=== PATIENT | female | born 1965 | race African-American/Black ===

== ENCOUNTER 2016-06-13 02:52 | Inpatient (IN) | payer OTHER ==
[~2016-06-13] VITALS: Ht 170.2 cm; Wt 74.6 kg
[2016-06-13] VITALS (16 sets, daily range): BP systolic 131–190; BP diastolic 65–128; PULSE 79–92; TEMP 36.6–37.7; O2SAT 93–99; Ht 170.2 cm; Wt 74.6 kg
[2016-06-13] MEDS ORDERED: SODIUM CHLORIDE 0.9% 1000ML 1,000 ML IV STA (02:59)
[2016-06-13 03:25] LABS: HEMATOCRIT 18.2 % (37-47); MEAN CELL VOLUME 81.3 fL (80-100); MEAN CORPUSCULAR HEMOGLOBIN 26.8 pg (25-34); MEAN PLATELET VOLUME 9.2 fL (7.4-10.4); PLATELET COUNT 188 K/uL (130-400); RED BLOOD COUNT 2.24 M/uL (4.2-5.4); WHITE BLOOD COUNT 8.31 K/uL (4.8-10.8)
[2016-06-13 03:45] LABS: BLOOD UREA NITROGEN 92 mg/dl (7-18); GLUCOSE 154 mg/dl (70-99)
[2016-06-13 03:46] LABS: ALKALINE PHOSPHATASE 80 U/L (45-117); ALT/SGPT 63 U/L (12-78); AST/SGOT 46 U/L (15-37); BUN/CREATININE RATIO 8.4 (10-20); CALCIUM 7.7 mg/dl (8.5-10.1); CARBON DIOXIDE 20 mmol/L (21-32); CHLORIDE 105 mmol/L (98-107); POTASSIUM 4.1 mmol/L (3.5-5.1); SODIUM 143 mmol/L (136-145)
[2016-06-13 04:04] LABS: BASO % 0.6 %; BASO ABS # 0.05 K/uL (0-0.2); COMPLETE YES; EOS % 2.2 %; IG% 0.1 %; LYMPH % 14.3 %; LYMPH ABS # 1.19 K/uL (1.2-3.4); NEUT % 78.8 %
[2016-06-13] MEDS ORDERED: FERR325T PO (04:29)
[2016-06-13] MEDS ORDERED: CALC0.2510 PO (04:29)
[2016-06-13] MEDS ORDERED: LABE1TAB28 PO (04:31)
[2016-06-13] MEDS ORDERED: B-CO1CAP17 PO (04:31)
[2016-06-13] MEDS ORDERED: NIFE90TA PO (04:31)
[2016-06-13] MEDS ORDERED: CETI10TA84 PO (04:32)
[2016-06-13] MEDS ORDERED: SODI650T8 PO (04:32)
[2016-06-13] MEDS ORDERED: BUME2TAB3 PO (04:32)
[2016-06-13] MEDS ORDERED: ATOR-24 PO (04:32)
[2016-06-13] MEDS ORDERED: ASPI-435 PO (04:34)
[2016-06-13] MEDS ORDERED: CALC667C4 PO (04:34)
[2016-06-13] MEDS ORDERED: EPP3/2 IM (04:34)
[2016-06-13] MEDS ORDERED: INSDGI SC (04:34)
[2016-06-13] MEDS ORDERED: DIPH25CA65 PO (04:37)
[2016-06-13] MEDS ORDERED: VNTHFA/IN INH (04:37)
[2016-06-13] MEDS ORDERED: GLUCOSE 40% GEL 15 GM TUBE PO PRN (04:45)
[2016-06-13] MEDS ORDERED: GLUCAGON FOR INJ 1 MG VIAL SQ PRN (04:45)
[2016-06-13] MEDS ORDERED: DEXTROSE 50% 50 ML SYR IV PRN (04:45)
[2016-06-13] MEDS ORDERED: GLUCOSE 10 TABS/TUBE PO PRN (04:45)
[2016-06-13] MEDS ORDERED: MAGNESIUM HYDROXIDE SUSP 30 ML UDC PO PRN (04:45)
--- NOTE | 2016-06-13 05:07 | History and Physical ---
History & Physical Date & Time of Service: Jun 13, 2016 at 04:52 Chief Complaint: Abdominal Pain Primary Care Physician: Osbaldo Craig MD History of Present Illness Source: patient, clinic records This is a 51 year old female with PMH of insulin dependent DM2, CKD stage V, anemia of chronic kidney disease, HTN presents after being told to come to the ER with lab results of elevated creatinine; these lab results were found on ; multiple attempts to contact patient; patient states that she finally listened to her voicemail today telling her to come to the ER. She states that last night she developed some worsening shortness of breath - was going to wait until today until she could see her PCP, but breathing worsened so she came to the ER - upon presentation, she was found to be very anemic with a Hgb of 6.0 - creat was up to 11.0. She does not have an AV fistula or tunneled catheter in place. Denies chest pain. Takes her medication as prescribed. As per patient, she is still producing urine daily. Past Medical/Surgical History Medical Problems: (1) ESRD (end stage renal disease) Status: Chronic (2) IDDM (insulin dependent diabetes mellitus) Status: Chronic Family History No pertinent family history Social History Smoking Status: Former Smoker Multi-Drug Resistant Organisms History of MDRO: No Allergies Uncoded Allergies: PCN, AMPICILLIN (Allergy, Unknown, 07/22/02) Home Medications Scheduled Aspirin (Aspirin 81), 81 MG PO DAILY Atorvastatin (Lipitor), 40 MG PO HS Bumetanide (Bumex), 2 MG PO BID Calcitriol (Rocaltrol Cap), 0.25 MCG PO Q2D Calcium Acetate (Phoslo 667 Mg), 1 CAP PO TIDM Cetirizine (Zyrtec), 10 MG PO DAILY Ferrous Sulfate (Ferrous Sulfate), 325 MG PO BID Insulin Glargine (Lantus), 4 UNITS SC Q12 Labetalol (Normodyne), 400 MG PO BID Nifedipine (Procardia Xl), 90 MG PO DAILY Sodium Bicarbonate (Sodium Bicarbonate), 650 MG PO BID Vitamin B Cmplx/Vitc/Folic Ac (Nephrocaps), 1 CAP PO DAILY Scheduled PRN Albuterol Hfa (Ventolin Hfa), 2 PUFFS INH Q4 PRN for WHEEZE/SOB/COUGH/CHEST TIGHT Diphenhydramine Hcl (Benadryl Allergy), 25 MG PO Q4-6 PRN for UNDECIDED Epinephrine (Epipen), 0.3 MG IM UD PRN for ALLERGIC REACTION Review of Systems Constitutional: + weakness, No chills, No fever Respiratory: + shortness of breath, No cough, No dyspnea at rest, No dyspnea on exertion, No hemoptysis, No sputum, No wheezing Cardiovascular: No chest pain, No edema, No palpitations Abdomen: + GI bleeding (dark stools), No constipation, No diarrhea, No nausea, No pain, No vomiting Musculoskeletal: No joint pain, No muscle pain Genitourinary - Female: No dysuria, No hematuria, No urinary frequency, No urinary incontinence, No urinary retention, No urinary urgency Psychiatric: No depression symptoms Endocrine: + fatigue Integumentary: No rash Allergic / Immunologic: No environmental allergies, No seasonal allergies Physical Exam Vital Signs Date Time Temp Pulse Resp B/P Pulse Ox O2 Delivery O2 Flow Rate FiO2 06/13/16 04:10 87 20 179/86 95 Room Air 06/13/16 03:10 87 06/13/16 03:00 36.4 87 20 170/97 88 Room Air General Appearance: no apparent distress Head: normocephalic, atraumatic Eyes: normal inspection ENT: hearing grossly normal Neck: supple Respiratory/Chest: lungs clear, normal breath sounds, no respiratory distress, no accessory muscle use Cardiovascular: regular rate, rhythm, no murmur Abdomen/GI: normal bowel sounds, non tender, soft Back: no CVA tenderness, no muscle spasm Extremities/Musculoskelatal: + pertinent finding (trace edema b/l LE) Neurologic/Psych: no motor/sensory deficits, alert, normal mood/affect Skin: normal color Lymphatic: no adenopathy Diagnostics Laboratory Results Results Past 24 Hours Test 06/13/16 03:00 06/13/16 04:40 Range/Units White Blood Count 8.31 4.8-10.8 K/uL Red Blood Count 2.24 4.2-5.4 M/uL Hemoglobin 6.0 12.0-16.0 g/dL Hematocrit 18.2 37-47 % Mean Corpuscular Volume 81.3 80-100 fL Mean Corpuscular Hemoglobin 26.8 25-34 pg Mean Corpuscular Hemoglobin Concent 33.0 32-36 g/dl Platelet Count 188 130-400 K/uL Mean Platelet Volume 9.2 7.4-10.4 fL Neutrophils (%) (Auto) 78.8 % Lymphocytes (%) (Auto) 14.3 % Monocytes (%) (Auto) 4.0 % Eosinophils (%) (Auto) 2.2 % Basophils (%) (Auto) 0.6 % Neutrophils # (Auto) 6.55 1.4-6.5 K/uL Lymphocytes # (Auto) 1.19 1.2-3.4 K/uL Monocytes # (Auto) 0.33 0.11-0.59 K/uL Eosinophils # (Auto) 0.18 0-0.5 K/uL Basophils # (Auto) 0.05 0-0.2 K/uL RDW Standard Deviation 42.8 36.4-46.3 fL RDW Coefficient of Variation 14.2 11.5-14.5 % Immature Granulocyte % (Auto) 0.1 % Immature Granulocyte # (Auto) 0.01 0.00-0.02 K/uL Red Blood Cell Morphology Unremarkable Sodium Level 143 136-145 mmol/L Potassium Level 4.1 3.5-5.1 mmol/L Chloride Level 105 98-107 mmol/L Carbon Dioxide Level 20 21-32 mmol/L Anion Gap 18.0 3-11 mmol/L Blood Urea Nitrogen 92 7-18 mg/dl Creatinine 11.00 0.60-1.20 mg/dl Est Creatinine Clear Calc Drug Dose 6.5 ml/min Estimated GFR () 4.1 Estimated GFR (Non- 3.6 BUN/Creatinine Ratio 8.4 10-20 Random Glucose 154 70-99 mg/dl Calcium Level 7.7 8.5-10.1 mg/dl Total Bilirubin 0.7 0.2-1 mg/dl Direct Bilirubin 0.1 0-0.2 mg/dl Aspartate Amino Transf (AST/SGOT) 46 15-37 U/L Alanine Aminotransferase (ALT/SGPT) 63 12-78 U/L Alkaline Phosphatase 80 45-117 U/L Troponin I 1.390 0-0.045 ng/ml Pro-B-Type Natriuretic Peptide > 11848 0-900 pg/ml Total Protein 7.3 6.4-8.2 gm/dl Albumin 3.3 3.4-5.0 gm/dl Lipase 135 73-393 U/L CXR normal Impression Assessment and Plan This is a 51 year old female with PMH of insulin dependent DM2, CKD stage V, anemia of chronic kidney disease, HTN presents after being told to come to the ER with lab results of elevated creatinine Anemia of Chronic Kidney Disease -->patient with Hgb of 6.0 -->clinically patient felt weak and short of breath -->will transfuse two units pRBCs with bumex dose in between -->consulted nephro for possible epo -->anemia w/up pending CKD stage V -->creat up to 11.0 -->no AV fistula or tunneled catheter in place -->will likely need HD soon; still producing urine -->nephrology consult and vascular surgery consult placed -->continue sodium bicarb, phoslo, nephrocaps, and calcitriol Insulin Dependent DM2 -->continue Lantus -->sliding scale insulin -->last Ha1c < 7.0% HTN -->elevated due to missed dose -->continue home medications DVT ppx -->SCDs FULL CODE VTE Prophylaxis VTE Risk Assessment Done? Y/N: Yes Risk Level: Moderate
[2016-06-13 05:20] LABS: FERRITIN 149.2 ng/ml (8.0-388.0); TOTAL IRON BINDING CAPACITY 225 mcg/dl (250-450)
--- NOTE | 2016-06-13 06:26 | EMERGENCY ROOM VISIT NOTE ---
History Report prepared by Cyrus: Can Deluna Under the Supervision of: Dr. Seferino Polk M.D. First contact with patient: 02:55 Chief Complaint: ABDOMINAL PAIN Stated Complaint: ABDOMINAL PAIN History of Present Illness The patient is a 51 year old female who presents to the Emergency Room with complaints of improving abdominal pain that started earlier tonight. The pain was 10/10 in severity at its worst. She also felt short of breath when she was laying flat. The patient started to experience non-productive cough, rhinorrhea , and other cold symptoms yesterday. The patient has a history of pneumonia, and her current symptoms feel similar. The patient was diagnosed with ESRD secondary to IDDM. She had blood drawn one week ago. She was called today by her Magnetic Resonance Imaging Coordinator and told that her creatinine levels were elevated. She is scheduled to see her PCP, Dr. Craig, at 1000 today. The patient has plans to start dialysis in the future. Source of History: patient Onset: tonight Position: abdomen Symptom Intensity: 10/10 Timing: other (improving) Associated Symptoms: + SOB, + cough Review of Systems See HPI for pertinent positives & negatives. A total of 10 systems reviewed and were otherwise negative. Past Medical & Surgical Medical Problems: (1) Anemia (2) ESRD (end stage renal disease) (3) IDDM (insulin dependent diabetes mellitus) Family History No pertinent family history Social History Housing Status: lives with family Current/Historical Medications Scheduled Aspirin (Aspirin 81), 81 MG PO DAILY Atorvastatin (Lipitor), 40 MG PO HS Bumetanide (Bumex), 2 MG PO BID Calcitriol (Rocaltrol Cap), 0.25 MCG PO Q2D Calcium Acetate (Phoslo 667 Mg), 1 CAP PO TIDM Cetirizine (Zyrtec), 10 MG PO DAILY Ferrous Sulfate (Ferrous Sulfate), 325 MG PO BID Insulin Glargine (Lantus), 4 UNITS SC Q12 Labetalol (Normodyne), 400 MG PO BID Nifedipine (Procardia Xl), 90 MG PO DAILY Sodium Bicarbonate (Sodium Bicarbonate), 650 MG PO BID Vitamin B Cmplx/Vitc/Folic Ac (Nephrocaps), 1 CAP PO DAILY Scheduled PRN Albuterol Hfa (Ventolin Hfa), 2 PUFFS INH Q4 PRN for WHEEZE/SOB/COUGH/CHEST TIGHT Diphenhydramine Hcl (Benadryl Allergy), 25 MG PO Q4-6 PRN for UNDECIDED Epinephrine (Epipen), 0.3 MG IM UD PRN for ALLERGIC REACTION Allergies Coded Allergies: Ampicillin (Verified Allergy, Unknown, Unknown, 06/13/16) Penicillins (Verified Allergy, Unknown, Unknown, 06/13/16) Physical Exam Vital Signs Date Time Temp Pulse Resp B/P Pulse Ox O2 Delivery O2 Flow Rate FiO2 06/13/16 04:10 87 20 179/86 95 Room Air 06/13/16 03:10 87 06/13/16 03:00 36.4 87 20 170/97 88 Room Air Physical Exam GENERAL: Patient is well appearing and in minimal distress. HEENT: No acute trauma, normocephalic atraumatic, mucous membranes moist, no nasal congestion, no scleral icterus. NECK: No stridor, no adenopathy, no meningismus, trachea is midline. LUNGS: No dyspnea. Crackles in all lung pagan. HEART: Regular rate and rhythm. No murmurs, rubs, gallops appreciated. ABDOMEN: Soft, nontender, bowel sounds positive, no masses appreciated, no peritonitis. BACK: No midline tenderness, no CVA tenderness EXTREMITIES: Normal motion all extremities, no cyanosis, no edema. NEUROLOGIC: Alert and oriented, no acute motor or sensory deficits, no focal weakness, cranial nerves grossly intact. SKIN: No rash, no jaundice, no diaphoresis. Medical Decision & Procedures ER Provider Diagnostic Interpretation: X ray results are stated below per my interpretation. CHEST ONE VIEW: Mild perihilar inflammation with some venous congestion. Enlarged heart. No effusion, no infiltrate. Laboratory Results 06/13/16 03:00 Red Blood Count 2.24, Mean Corpuscular Volume 81.3, Mean Corpuscular Hemoglobin 26.8, Mean Corpuscular Hemoglobin Concent 33.0, Mean Platelet Volume 9.2, Neutrophils (%) (Auto) 78.8, Lymphocytes (%) (Auto) 14.3, Monocytes (%) (Auto) 4.0, Eosinophils (%) (Auto) 2.2, Basophils (%) (Auto) 0.6, Neutrophils # (Auto) 6.55, Lymphocytes # (Auto) 1.19, Monocytes # (Auto) 0.33, Eosinophils # (Auto) 0.18, Basophils # (Auto) 0.05 06/13/16 03:00 Test 06/13/16 03:00 White Blood Count 8.31 K/uL (4.8-10.8) Red Blood Count 2.24 M/uL (4.2-5.4) Hemoglobin 6.0 g/dL (12.0-16.0) Hematocrit 18.2 % (37-47) Mean Corpuscular Volume 81.3 fL (80-100) Mean Corpuscular Hemoglobin 26.8 pg (25-34) Mean Corpuscular Hemoglobin Concent 33.0 g/dl (32-36) Platelet Count 188 K/uL (130-400) Mean Platelet Volume 9.2 fL (7.4-10.4) Neutrophils (%) (Auto) 78.8 % Lymphocytes (%) (Auto) 14.3 % Monocytes (%) (Auto) 4.0 % Eosinophils (%) (Auto) 2.2 % Basophils (%) (Auto) 0.6 % Neutrophils # (Auto) 6.55 K/uL (1.4-6.5) Lymphocytes # (Auto) 1.19 K/uL (1.2-3.4) Monocytes # (Auto) 0.33 K/uL (0.11-0.59) Eosinophils # (Auto) 0.18 K/uL (0-0.5) Basophils # (Auto) 0.05 K/uL (0-0.2) RDW Standard Deviation 42.8 fL (36.4-46.3) RDW Coefficient of Variation 14.2 % (11.5-14.5) Immature Granulocyte % (Auto) 0.1 % Immature Granulocyte # (Auto) 0.01 K/uL (0.00-0.02) Red Blood Cell Morphology Unremarkable Absolute Reticulocyte Count 0.04 10^6/uL (0.02-0.10) Percent Reticulocyte Count 1.7 % (0.5-2.0) Anion Gap 18.0 mmol/L (3-11) Est Creatinine Clear Calc Drug Dose 6.5 ml/min Estimated GFR () 4.1 Estimated GFR (Non- 3.6 BUN/Creatinine Ratio 8.4 (10-20) Calcium Level 7.7 mg/dl (8.5-10.1) Iron Level 25 mcg/dl (35-150) Total Iron Binding Capacity 225 mcg/dl (250-450) Ferritin 149.2 ng/ml (8.0-388.0) Total Bilirubin 0.7 mg/dl (0.2-1) Direct Bilirubin 0.1 mg/dl (0-0.2) Aspartate Amino Transf (AST/SGOT) 46 U/L (15-37) Alanine Aminotransferase (ALT/SGPT) 63 U/L (12-78) Alkaline Phosphatase 80 U/L (45-117) Troponin I 1.390 ng/ml (0-0.045) Pro-B-Type Natriuretic Peptide > 59584 pg/ml (0-900) Total Protein 7.3 gm/dl (6.4-8.2) Albumin 3.3 gm/dl (3.4-5.0) Lipase 135 U/L (73-393) Laboratory results as reviewed by me. Medications Administered Medications (Trade) Dose Ordered Sig/Ben Route Start Time Stop Time Status Last Admin Dose Admin Sodium Chloride (Nss 1000ml) 1,000 ml @ 75 mls/hr [id number] STAT IV 06/13/16 02:59 06/13/16 06:19 DC 06/13/16 03:22 75 MLS/HR ECG Indication: abdominal pain Rate (beats per minute): 84 Rhythm: normal sinus Findings: nonspecific-ST abn, ST depression (Lateral), other (LVH, prolonged QTC at 508) ED Course 0255: The patient was evaluated in room B12b. A complete history and physical exam was performed. 0259: NSS 1000 ml @ 75 mls/hr. 0330: Updated the patient. 0350: Dr. Antunez, [facility] Hospitalist, was paged. 0412: Discussed the case with Dr. Antunez, [facility] Hospitalist. The patient will be evaluated. Medical Decision Differential: Sepsis, Infectious (UTI/Pneumonia/Meningitis/etc), Metabolic/ Electrolyte Abnormality, Cardiac, Hepatic, Endocrine, Toxicologic, Neurologic, amongst other pathologies entertained. 51 yr old female arrives with complaint of feeling short of breath this evening with vague abdominal discomfort and admits that her PCP advised her to go to ED several days ago for admission due to renal failure. Exam with some evidence of fluid overload which CXR is consistent with. She is not having chest pain and EKG without ischemia, though trop bump, which is likely Cr related. Cr is 11 which is quite high and I am sure is acute but unknown what her baseline is. Electrolytes are OK. She is very anemic which she admits she was told that she would need Epo last week though I suspect that this is acutely lower than previous. She states she has no black/tarry/bloody stools, however nursing came to tell me that she had remembered she was having black stools, though at this point hospitalist already in evaluating patient. Stable in ED without issues. I discussed need for blood transfusion given significant anemia with positive trop and patient understands risks/benefits and agrees with transfusion. Consults Time Called: 349 Consulting Physician: Dave Telles Hospitalist Returned Call: [phone]: Discussed the case with Dave Telles. The patient will be evaluated. Impression Primary Impression: Anemia Additional Impressions: Acute renal failure (ARF), Acute heart failure, Elevated troponin Critical Care I have personally spent greater than 35 minutes of critical care time in the direct management of this patient. This was a life/limb threatening event. This includes time spent evaluating patient, direct bedside care, chart review, placing orders, interpretation of diagnostic studies, discussion with consultants, patient, and family members, as well as other required patient management activities. This 35 minutes is in excess of all separately billable procedures. Scribe Attestation The scribe's documentation has been prepared under my direction and personally reviewed by me in its entirety. I confirm that the note above accurately reflects all work, treatment, procedures, and medical decision making performed by me. Departure Information Dispostion Being Evaluated By Hospitalist Rajat Johnson M.D. (PCP) Patient Instructions A Signature Page
[2016-06-13] MEDS ORDERED: BUMETANIDE 1 MG TAB PO ONE (06:30)
[2016-06-13 07:01] LABS: ESTIMATED AVERAGE GLUCOSE 120 mg/dl; HA1C FLAG Normal (Normal)
--- NOTE | 2016-06-13 07:35 | DIAGNOSTIC IMAGING REPORT ---
CHEST ONE VIEW PORTABLE HISTORY: Short of breath. COMPARISON: None. FINDINGS: The heart is enlarged. There is perihilar hazy opacities with mild interstitial and vascular thickening. No pneumothorax. Suspect trace bilateral pleural effusions. IMPRESSION: Above findings likely represent mild pulmonary edema with mild cardiomegaly and trace bilateral pleural effusions. Electronically signed by: Alli Quintanilla M.D. 06/13/2016 7:33 AM
[2016-06-13] MEDS: LABETALOL HCL 200 MG TAB PO SCH ×2 (08:07→22:11)
[2016-06-13] MEDS: CALCIUM ACETATE 667MG GELCAP PO SCH ×3 (08:07→18:51)
[2016-06-13] MEDS: NEPHROCAPS PO SCH (08:08)
[2016-06-13] MEDS: FERROUS SULFATE 325 MG TAB PO SCH ×2 (08:08→22:12)
[2016-06-13] MEDS: CALCITRIOL 0.25 MCG CAP PO SCH (08:08)
[2016-06-13] MEDS: NIFEdipine 30 MG CR TAB PO SCH (08:09)
[2016-06-13] MEDS: SODIUM BICARBONATE 650 MG TAB PO SCH ×2 (08:09→22:13)
[2016-06-13] MEDS: INSULIN ASPART 100 UNITS/ML 3 ML PEN SC SCH ×4 (08:12→21:00)
[2016-06-13] MEDS: INSULIN GLARGINE SOLOSTAR 100 UNITS/ML 3 ML PEN SC SCH ×2 (08:25→21:00)
[2016-06-13] MEDS ORDERED: ONDANSETRON INJ 2 MG/ML 2 ML VIAL ONE (10:03)
[2016-06-13] MEDS ORDERED: ONDANSETRON INJ 2 MG/ML 2 ML VIAL IV STA (12:54)
--- NOTE | 2016-06-13 14:37 | Progress Note ---
Medicine Progress Note Date & Time of Visit: Jun 13, 2016 at 14:16. Subjective Pt was seen and examined Lying in bed with no distress Pt said that she is very hungry she said that for the last few weeks she has been having dark stools She said that she just had a bowel movement and the stool was dark denies any family hx of colon ca she said that she is schedule for a screening colonoscopy in the next few weeks with [facility] in [place] denies any chest pain, palpitation, dizziness Objective Last 8 Hrs Date Time Temp Pulse Resp B/P Pulse Ox O2 Delivery O2 Flow Rate FiO2 06/13/16 13:22 85 06/13/16 12:00 36.6 82 16 140/68 93 Nasal Cannula 5.0 06/13/16 12:00 93 Nasal Cannula 5.0 06/13/16 11:08 84 06/13/16 10:00 82 16 166/97 95 Nasal Cannula 4.0 06/13/16 09:35 37.0 83 16 179/96 96 4.0 06/13/16 09:24 96 Nasal Cannula 4.0 06/13/16 09:14 37.1 83 16 189/99 96 4.0 06/13/16 09:05 37.1 83 16 189/88 96 4.0 06/13/16 08:35 37.1 87 16 179/121 95 4.0 06/13/16 08:20 37.2 81 16 184/96 96 4.0 06/13/16 08:00 36.7 82 16 173/128 97 4.0 06/13/16 07:12 36.7 88 16 190/90 98 06/13/16 06:59 87 Physical Exam: General- very pleasant, no acute distress Head- atraumatic Eyes- PERRL, EOMI ENT- oropharynx clear Neck- supple, no JVD Lungs- clear to auscultation and percussion, no wheezing Heart- regular rhythm; no murmur Abdomen- normal bowel sounds, soft, mild tender with deep palpation across the lower abdominal Extremities- no pretibial edema, no calf tenderness Neuro- alert, oriented x 3; PERRL, EOMI Skin- warm & dry Laboratory Results: Last 24 Hours Test 06/13/16 03:00 06/13/16 03:02 06/13/16 05:14 06/13/16 07:55 White Blood Count 8.31 K/uL Red Blood Count 2.24 M/uL Hemoglobin 6.0 g/dL Hematocrit 18.2 % Mean Corpuscular Volume 81.3 fL Mean Corpuscular Hemoglobin 26.8 pg Mean Corpuscular Hemoglobin Concent 33.0 g/dl Platelet Count 188 K/uL Mean Platelet Volume 9.2 fL Neutrophils (%) (Auto) 78.8 % Lymphocytes (%) (Auto) 14.3 % Monocytes (%) (Auto) 4.0 % Eosinophils (%) (Auto) 2.2 % Basophils (%) (Auto) 0.6 % Neutrophils # (Auto) 6.55 K/uL Lymphocytes # (Auto) 1.19 K/uL Monocytes # (Auto) 0.33 K/uL Eosinophils # (Auto) 0.18 K/uL Basophils # (Auto) 0.05 K/uL RDW Standard Deviation 42.8 fL RDW Coefficient of Variation 14.2 % Immature Granulocyte % (Auto) 0.1 % Immature Granulocyte # (Auto) 0.01 K/uL Red Blood Cell Morphology Unremarkable Absolute Reticulocyte Count 0.04 10^6/uL Percent Reticulocyte Count 1.7 % Sodium Level 143 mmol/L Potassium Level 4.1 mmol/L Chloride Level 105 mmol/L Carbon Dioxide Level 20 mmol/L Anion Gap 18.0 mmol/L Blood Urea Nitrogen 92 mg/dl Creatinine 11.00 mg/dl Est Creatinine Clear Calc Drug Dose 6.5 ml/min Estimated GFR () 4.1 Estimated GFR (Non- 3.6 BUN/Creatinine Ratio 8.4 Random Glucose 154 mg/dl Estimated Average Glucose 120 mg/dl Hemoglobin A1c 5.8 % Calcium Level 7.7 mg/dl Iron Level 25 mcg/dl Total Iron Binding Capacity 225 mcg/dl Ferritin 149.2 ng/ml Total Bilirubin 0.7 mg/dl Direct Bilirubin 0.1 mg/dl Aspartate Amino Transf (AST/SGOT) 46 U/L Alanine Aminotransferase (ALT/SGPT) 63 U/L Alkaline Phosphatase 80 U/L Troponin I 1.390 ng/ml Pro-B-Type Natriuretic Peptide > 53191 pg/ml Total Protein 7.3 gm/dl Albumin 3.3 gm/dl Lipase 135 U/L Hepatitis C Antibody Screen NEG Vitamin B12 Level 1119 pg/mL Folate > 24.00 ng/mL Bedside Glucose 152 mg/dl Test 06/13/16 12:00 06/13/16 13:16 Bedside Glucose 111 mg/dl Assessment & Plan Symptomatic Anemia Mostly related to Anemia of chronic disease Hgb of 6.0 on admission clinically patient felt weak and short of breath recieved 2 units pRBCs Will continue monitor h/h never had a colonoscopy Will consult GI Check FOBT ( Pt said that she has been having dark stool for week) Clear liquid diet PPI Iron studies done CKD stage V creatine up to 11.0 on admission with elevated anion gap no AV fistula or tunneled catheter in place Consult placed for vascular and nephrology She still produces urine continue sodium bicarb, phoslo, nephrocaps, and calcitriol Avoid nephrotoxic agent Insulin Dependent DM2 Control continue Lantus sliding scale insulin HbA1c 5.8 (06/13/16) HTN elevated due to missed dose continue home medications Continue monitor BP Elevated troponin Mostly related to CKD and low hgb denies any chest pain EKG did not show any significant ST changes will monitor CM DVT ppx -->SCDs FULL CODE Current Inpatient Medications: Current Inpatient Medications Medications (Trade) Dose Ordered Sig/Ben Route Start Time Stop Time Status Last Admin Dose Admin Magnesium Hydroxide (Milk Of Magnesia Susp) 30 ml Q12H PRN PO 06/13/16 04:45 07/13/16 04:44 Insulin Aspart (novoLOG ASPART) SLIDING SCALE If C... ACHS SC 06/13/16 07:00 07/13/16 06:59 06/13/16 08:12 1 UNITS Glucose (Glucose 40% Gel) 15-30 GRAMS 15 GRAMS... UD PRN PO 06/13/16 04:45 07/13/16 04:44 Glucose (Glucose Chew Tab) 4-8 Tablets 4 Tabl... UD PRN PO 06/13/16 04:45 07/13/16 04:44 Dextrose (Dextrose 50% 50ML Syringe) 25-50ML OF 50% DW IV FOR... UD PRN IV 06/13/16 04:45 07/13/16 04:44 Glucagon (Glucagon Inj) 1 mg UD PRN SQ 06/13/16 04:45 07/13/16 04:44 Atorvastatin Calcium (Lipitor Tab) 40 mg HS PO 06/13/16 21:00 07/13/16 20:59 Calcitriol (Rocaltrol Cap) 0.25 mcg Q48H PO 06/13/16 09:00 07/13/16 08:59 06/13/16 08:08 0.25 MCG Calcium Acetate (Phoslo Cap) 667 mg TIDM PO 06/13/16 08:00 07/13/16 07:59 06/13/16 08:07 667 MG Insulin Glargine (Lantus Solostar Pen) 4 unit Q12 SC 06/13/16 09:00 07/13/16 08:59 06/13/16 08:25 4 UNIT Labetalol HCl (Normodyne Tab) 400 mg BID PO 06/13/16 06:30 07/13/16 06:29 06/13/16 08:07 400 MG Sodium Bicarbonate (Sodium Bicarbonate Tab) 650 mg BID PO 06/13/16 09:00 07/13/16 08:59 06/13/16 08:09 650 MG Vitamin B Complex/ Vit C/Folic Acid (Nephrocaps) 1 cap DAILY PO 06/13/16 09:00 07/13/16 08:59 06/13/16 08:08 1 CAP Ferrous Sulfate (Feosol Tab) 325 mg BID PO 06/13/16 09:00 07/13/16 08:59 06/13/16 08:08 325 MG Nifedipine (Procardia Xl Tab) 90 mg DAILY PO 06/13/16 09:00 07/13/16 08:59 06/13/16 08:09 90 MG
--- NOTE | 2016-06-13 16:18 | Surgery Consultation ---
Consultation Date of Service Jun 13, 2016. (Yaa Ralph, PRATIBHA) Chief Complaint ESRD (Yaa Ralph PA-C) History of Present Illness The patient is a 51 year old female with hx of CKD stage 5, HTN, DMII, seen in consultation today for insertion of permcath for HD during admission for ARF and anemia. Pt admits fatigue. Denies MANCIA, fever, chills, chest pain, SOB, abd pain, N/V, rest pain, claudication, other complaints. (Yaa Ralph, PRATIBHA) Vitals Vital Signs Past 12 Hours Date Time Temp Pulse Resp B/P Pulse Ox O2 Delivery O2 Flow Rate FiO2 06/13/16 13:22 85 06/13/16 12:00 36.6 82 16 140/68 93 Nasal Cannula 5.0 06/13/16 12:00 93 Nasal Cannula 5.0 06/13/16 11:08 84 06/13/16 10:00 82 16 166/97 95 Nasal Cannula 4.0 06/13/16 09:35 37.0 83 16 179/96 96 4.0 06/13/16 09:24 96 Nasal Cannula 4.0 06/13/16 09:14 37.1 83 16 189/99 96 4.0 06/13/16 09:05 37.1 83 16 189/88 96 4.0 06/13/16 08:35 37.1 87 16 179/121 95 4.0 06/13/16 08:20 37.2 81 16 184/96 96 4.0 06/13/16 08:00 36.7 82 16 173/128 97 4.0 06/13/16 07:12 36.7 88 16 190/90 98 06/13/16 06:59 87 06/13/16 06:13 37.3 89 18 189/91 97 Room Air 06/13/16 06:12 37.3 92 18 189/91 99 4.0 06/13/16 06:12 37.3 89 18 189/91 98 4.0 06/13/16 05:44 93 20 162/68 94 Nasal Cannula 4.0 06/13/16 05:42 37.7 90 20 175/100 97 4.0 06/13/16 05:23 37.3 87 12 184/86 97 4.0 (Yaa Ralph PA-C) Allergies Coded Allergies: Ampicillin (Verified Allergy, Unknown, Unknown, 06/13/16) Penicillins (Verified Allergy, Unknown, Unknown, 06/13/16) Home Medications Scheduled Aspirin (Aspirin 81), 81 MG PO DAILY Atorvastatin (Lipitor), 40 MG PO HS Bumetanide (Bumex), 2 MG PO BID Calcitriol (Rocaltrol Cap), 0.25 MCG PO Q2D Calcium Acetate (Phoslo 667 Mg), 1 CAP PO TIDM Cetirizine (Zyrtec), 10 MG PO DAILY Ferrous Sulfate (Ferrous Sulfate), 325 MG PO BID Insulin Glargine (Lantus), 4 UNITS SC Q12 Labetalol (Normodyne), 400 MG PO BID Nifedipine (Procardia Xl), 90 MG PO DAILY Sodium Bicarbonate (Sodium Bicarbonate), 650 MG PO BID Vitamin B Cmplx/Vitc/Folic Ac (Nephrocaps), 1 CAP PO DAILY Scheduled PRN Albuterol Hfa (Ventolin Hfa), 2 PUFFS INH Q4 PRN for WHEEZE/SOB/COUGH/CHEST TIGHT Diphenhydramine Hcl (Benadryl Allergy), 25 MG PO Q4-6 PRN for UNDECIDED Epinephrine (Epipen), 0.3 MG IM UD PRN for ALLERGIC REACTION Problem List Medical Problems: (1) Anemia (2) ESRD (end stage renal disease) (3) IDDM (insulin dependent diabetes mellitus) (Yaa Ralph PA-C) Surgical / Medical History Hx Cardiac Surgery: No Hx Abdominal Surgery: Yes ( ) Hx Cancer Surgery: No Hx Thoracic Surgery: No Hx Orthopedic: No Hx Urinary Tract Surgery: No HX Other Surgery: Yes (ORAL ) Past Medical/Surgical History: Diabetes, Hypertension, Kidney Disease (Yaa Ralph PA-C) Family History No pertinent family history (Yaa Ralph PA-C) No pertinent family history (Bryant García M.D.) Social History Smoking Status: Former Smoker Hx Alcohol Use - Type & Amnt: Yes (OCC WINE ) Hx Substance Use -Type & Amnt: No (Yaa Ralph PA-C) Review of Systems Constitutional: + malaise, No chills, No fever Eyes: No visual changes ENMT: No sore throat Respiratory: + FAJARDO, No cough, No hemoptysis, No short of breath Cardiovascular: + edema, No chest pain, No intermittent claudication, No palpitations Gastrointestinal: No abdominal pain, No nausea, No vomiting Genitourinary - Female: No dysuria, No hematuria Neurologic: No dizziness, No lethargy, No numbness, No tingling (Yaa Ralph PA-C) Physical Exam Constitutional: General Apperance: well-nourished, well-developed Level of Distress: NAD, acutely ill Ambulation: ambulating normally Psychiatric: Mental Status: active & alert, normal mood, normal affect Orientation: oriented except where noted, to time, to place, to person Memory: recent memory normal, remote memory normal Head: normocephalic, atraumatic Eyes: EOM: EOMI ENMT: normal ENT inspection, hearing grossly normal Neck: supple, trachea midline Lungs: Respiratory effort: no dyspnea Auscultation: no rales/crackles, no rhonchi, decreased breath sounds Cardiovascular: Apical Impulse: not displaced Heart Auscultation: RRR, no rubs, no gallops Peripheral Pulses: Pulses: full and equal, in all extremities except if noted Bruits: none appreciated Carotid Pulse: normal on the left, normal on the right Brachial Pulses: normal on the left, normal on the right Radial Pulse: normal on the left, normal on the right Femoral Pulse: normal on the left, normal on the right Posterior Tibialis Pulse: decreased on the left, decreased on the right Dorsalis Pedis Pulse: decreased on the left, decreased on the right Abdomen: Bowel Sounds: normal Inspection & Palpation: soft, non-distended, no tenderness, guarding & rebound Musculoskeletal: normal strength (5/5 throughout), normal tone Extremities: Upper Right: no cyanosis, no varicosities, edema Upper Left: no cyanosis, no varicosities, no palpable cord, edema Lower Right: no cyanosis, no edema, no varicosities Lower Left: no cyanosis, no edema, no varicosities Neurologic: Cranial Nerves: grossly intact Sensation: grossly intact (Yaa Ralph, DARSHANAC) Assessment and Plan ASSESSMENT and PLAN: ESRD Pt on OR schedule for permcath insertion tomorrow. Discussed with pt, she states is not yet ready to proceed with catheter insertion. States she is planning on getting a second opinion as to whether she truly needs HD. Also would like to discuss possible transplant. Plans on discussing further with Nephrology tomorrow. Please call when/if pt agreeable to permcath insertion. (Yaa Ralph, PA-C)
--- NOTE | 2016-06-13 16:27 | NEPHROLOGY CONSULTATION ---
DATE OF CONSULTATION: 06/13/2016 ATTENDING OF RECORD: Dr. Belle. REASON FOR CONSULTATION: CKD stage V. HISTORY OF PRESENT ILLNESS: This is a 51-year-old female who recently moved to [place] and has seen my partner, Dr. Josie Castano once, came from out of state and was told her that her kidneys are failing. The patient is a diabetic and does have anemia of chronic kidney disease not yet on Procrit as well as underlying hypertension. The patient has been difficult to get a hold of in terms of arranging followup appointments and has canceled several followup appointments. Based on labs, kidney function was worsening quite dramatically and was encouraged to come to the Emergency Room for further evaluation and initiation of starting dialysis. The patient feels very tired and has had nausea and vomiting with her meds when she takes them on an empty stomach. Has intermittent decreased appetite. The patient states she has a son who lives in [place] who may be a potential donor. I have talked to Dr. García, the vascular surgeon who was making arrangements for a tunneled dialysis catheter for tomorrow. When speaking to her today, the patient does not want to start dialysis at this time and wants to pursue transplant. The patient also is requesting a second opinion from another nephrology group to see if she really needs to start dialysis or not. Based on Dr. Dykes's notes when she saw the patient May 09 and outside records that were sent to her on May 16, she was admitted in [place] from September 24 to the with acute on chronic heart failure. Her admission potassium was 6.3 and creatinine is 4.8. PTH was 237. Hepatitis panel and LINDY and ANCA titers were within normal limits. SPEP was negative. Did have elevated microalbumin of 4926 and a 24-hour urine was done for proteinuria which showed about 7.5 grams. Renal ultrasound showed 11.7 cm right kidney, 10.6 cm left kidney. Bilateral lower extremities showed some superficial venous thrombosis on bilateral small saphenous veins. No DVT seen. Echo done 09/28/2015 showed mild concentric LVH with an EF of 55%, no wall motion abnormalities and normal RV function and notes were made that during admission some behavioral concerns were seen and security called and there were concerns of whether the patient had appropriate housing upon discharge. On 10/17/2015, her creatinine was 5.7 with an estimated GFR of 9. On 12/22/2015, her creatinine was 6.7. So overall, the patient had CKD stage V since at least spring with no significant cardiac pathology and serologic workup for proteinuria was negative. Presumed diabetic nephropathy; however, there has been a challenging psychosocial situation based on notes in [place]. Dr. Tate who was covering Alejandrina Dykes on June 05 found a creatinine level 11.5 and stated that she needs dialysis and recommended that she will need access and need to start dialysis, that her blood pressure had a systolic of 190 indicating that this is not volume depleted. ROS: +fatigue, no fevers or chills, no headaches, no blurry vision, no dysphagia , no rash or itching, no chest pain, no sob, +significant weight loss, no diarrhea or constipation, +nausea and vomiting intermittently secondary to meds, all other review of systems otherwise negative. PAST MEDICAL HISTORY: Type 2 diabetes, hypertension, CKD stage V. The patient has been a diabetic since 1986 with retinopathy and neuropathy, had a TIA as well as longstanding hypertension. The patient had a DVT in the past x2 requiring Coumadin, has lost about 60 pounds in the past year, recently moved to the area from [place]. 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 The patient's main complaint has been fatigue. PAST SURGICAL HISTORY: Not known. SOCIAL HISTORY: Former smoker, occasional alcohol, no drugs. Lives alone. FAMILY HISTORY: Significant for 1 sibling on dialysis and 5 siblings with diabetes. CURRENT MEDICATIONS: Protonix 40 mg a day, Lipitor 40 mg at night, calcitriol 0.25 mcg every other day, Lantus 4 units subQ q. 12, sodium bicarbonate 650 mg p.o. b.i.d., Nephrocaps daily, iron 325 mg p.o. b.i.d., nifedipine 90 mg daily, PhosLo 1 p.o. t.i.d. with meals, sliding scale insulin, labetalol 400 mg p.o. b.i.d. PHYSICAL EXAMINATION VITAL SIGNS: Temperature 36.6, pulse 85, respiratory rate 16, blood pressure 140/68, satting 93% on 5 liters. GENERAL: Awake, alert, oriented x3. EYES: No scleral icterus. ENT: Moist mucous membranes. NECK: Supple. PULMONARY: Clear to auscultation. CARDIAC: Tachy. ABDOMEN: Bowel sounds positive, soft, nontender, nondistended. EXTREMITIES: No clubbing, cyanosis, has a mild edema. NEUROLOGIC: Nonfocal. DERMATOLOGIC: No rash or ulcers noted. LABORATORIES AND IMAGING DATA: On admission, hemoglobin level was 6, hematocrit 18.2; now hemoglobin level is 7.7 and 23 after being transfused 2 units. Vitamin B12 is 1119. Folic acid is greater than 24. Hemoglobin A1c is 5.8. Sodium level this morning was 143, potassium 4.1, chloride is 105, bicarb is 20, BUN is 92, creatinine is 11, glucose is 154, and calcium is 7.7. Ferritin 325, troponin 1.390. ProBNP greater than 35,000. Albumin is 3.3, lipase is 135. Hep C negative. Chest x-ray shows mild pulmonary edema with mild cardiomegaly and trace bilateral pleural effusions. IMPRESSION: 1. Chronic kidney disease stage V, presumed to be a combination of diabetes and hypertension with significant proteinuria based on previous records who has experienced uremic symptoms with fatigue, intermittent nausea and vomiting, and decreased appetite. I am recommending a tunneled dialysis catheter and initiation of dialysis. The patient would like to pursue transplant and be evaluated by transplant first and see if she can avoid dialysis altogether. The patient does have a potential living donor in [place] with her son. Unclear if her support system is strong enough to allow transplant; however, I have placed a transplant referral at this time to be evaluated by [facility] transplant as an outpatient. The patient is requesting a second opinion from the other nephrology group to see if they also recommend dialysis at this time. I did explain to her that we can continue dialysis and pursue aggressive transplant evaluation at the same time and that I am concerned that her uremic symptoms may worsen without dialysis and may lead to premature , although her potassium levels are stable at this time. Pt expressed understanding. 2. Anemia of chronic kidney disease stage V. Hemoglobin level is 6, did get 2 units of blood and is now up to 7.7. Hesitant to start Procrit at this time given the fact that she has had a 60-pound weight loss over the past year and I would like a colonoscopy first to rule out any type of concerning possible cancer, although her weight loss could be multifactorial and a consequence of her chronic kidney disease with poor appetite given the fact that she could have actually started dialysis about a year ago. GI has been consulted and I will discuss further with GI. 3. Metabolic acidosis, bicarbonate level is 20 and we will continue the sodium bicarbonate tablets. 4. Renal osteodystrophy. We will continue the patient's calcitriol and PhosLo and follow phosphorus levels intermittently. Overall, I do not feel the patient is volume depleted. I feel this is chronic kidney disease stage V and that initiation of dialysis is warranted. Given the fact that previous records from [place] indicate possible behavioral disturbances and she has a GFR of 4 and does not want to start dialysis at this time, I am respectful of her decision however I would like psychiatry to evaluate the patient to corroborate that she is of sound mind and understands the risks and side effects of waiting before initiating dialysis. Patient has uremic symptoms, has had a significant weight loss, has anemia and has signs of volume overload with a ProBNP of greater than 35,000 all necessitating initiation of dialysis and without dialysis the patient is risking her life. I have consulted the other nephrology group for a second opinion and I will discuss with Dr. García about her wishes to not do dialysis at this time and to not place the tunneled dialysis catheter. I will respect her wishes and stabilize the patient with continued blood transfusions as tolerated. For now, I would not start Procrit initiation until we rule out colon cancer given the significant weight loss over the past year. I appreciate the consultation. ERIKA
--- NOTE | 2016-06-13 16:37 | Gastrointestinal Consultation ---
Gastrointestinal Consultation Date of Consultation: Jun 13, 2016 Consulting Physician: Dr. Jason Reason for Consultation: melena, anemia History of Present Illness Patient is a 51 year old female with a history significant for insulin dependent DM2, CKD stage V, anemia of chronic kidney disease and HTN. GI was asked to evaluate the patient for anemia and black tarry stools. That patient states that she started taking PO iron in January. She reports intermittent episodes of dark tarry stools but they always resolved without intervention in a few days. Today, she reports about 1 week of dark tarry stools with worsening anemia. She denies any abdominal pain associated with these stools. She reports that she has a history of stomach ulcers, although she states she has never had an EGD. She denies SOB (was having SOB prior to admission) fever, chills, nausea , vomiting, bloody stools/emesis. HGB prior to admission was 6. HGB after 2 units of blood was 7. BUN 92 Creatine 11 Patient denies any previous EGD/Colonoscopy. She is scheduled for an outpatient colonoscopy in [place] this month Past Medical/Surgical History Medical Problems: (1) Acute heart failure Status: Acute (2) Acute renal failure (ARF) Status: Acute (3) Elevated troponin Status: Acute Family History No pertinent family history Social History Smoking Status: Former Smoker Housing Status: lives with family Allergies Coded Allergies: Ampicillin (Verified Allergy, Unknown, Unknown, 06/13/16) Penicillins (Verified Allergy, Unknown, Unknown, 06/13/16) Current Medications Home Meds and Scripts Medications Dose Route/Sig Max Daily Dose Days Date Category Dose Instructions Ventolin Hfa (Albuterol) 200 Puffs/03522 Mcg Aers 2 Puffs INH Q4 PRN 06/13/16 Reported AND PRIOR TO EXERCISE Benadryl Allergy (Diphenhydramine Hcl) 25 Mg Cap 25 Mg PO Q4-6 PRN 06/13/16 Reported Epipen (Epinephrine) 0.3 Mg/0.3 Ml Inj 0.3 Mg IM UD PRN 06/13/16 Reported Phoslo 667 Mg (Calcium Acetate) 667 Mg Cap 1 Cap PO TIDM 06/13/16 Reported Lantus (Insulin Glargine) 100 Unit/Ml Inj 4 Units SC Q12 06/13/16 Reported Aspirin 81 (Aspirin) 81 Mg Tab 81 Mg PO DAILY 06/13/16 Reported Zyrtec (Cetirizine HCl) 10 Mg Tab 10 Mg PO DAILY 06/13/16 Reported Lipitor (Atorvastatin Calcium) 40 Mg Tab 40 Mg PO HS 06/13/16 Reported Sodium Bicarbonate 650 Mg Tab 650 Mg PO BID 06/13/16 Reported Bumex (Bumetanide) 2 Mg Tab 2 Mg PO BID 06/13/16 Reported Nephrocaps (Vitamin B Complex/Vit C/Folic Acid) Cap 1 Cap PO DAILY 06/13/16 Reported Procardia Xl (Nifedipine) 90 Mg Tab 90 Mg PO DAILY 06/13/16 Reported Normodyne (Labetalol HCl) 200 Mg Tab 400 Mg PO BID 06/13/16 Reported Ferrous Sulfate 325 Mg Tab 325 Mg PO BID 06/13/16 Reported Rocaltrol Cap (Calcitriol) 0.25 Mcg Cap 0.25 Mcg PO Q2D 06/13/16 Reported Review of Systems Constitutional: + weight loss, No chills, No fever Eyes: No worsening of vision ENT: No hearing loss Respiratory: No cough, No shortness of breath Cardiac: + edema, No chest pain Abdomen: + GI bleeding (black tarry stools for 1 week, previously reports these in december which stopped without intervention), No constipation, No diarrhea , No nausea, No pain, No vomiting Physical Exam Date Time Temp Pulse Resp B/P Pulse Ox O2 Delivery O2 Flow Rate FiO2 06/13/16 13:22 85 06/13/16 12:00 36.6 82 16 140/68 93 Nasal Cannula 5.0 06/13/16 12:00 93 Nasal Cannula 5.0 06/13/16 11:08 84 06/13/16 10:00 82 16 166/97 95 Nasal Cannula 4.0 06/13/16 09:35 37.0 83 16 179/96 96 4.0 06/13/16 09:24 96 Nasal Cannula 4.0 06/13/16 09:14 37.1 83 16 189/99 96 4.0 06/13/16 09:05 37.1 83 16 189/88 96 4.0 06/13/16 08:35 37.1 87 16 179/121 95 4.0 06/13/16 08:20 37.2 81 16 184/96 96 4.0 06/13/16 08:00 36.7 82 16 173/128 97 4.0 06/13/16 07:12 36.7 88 16 190/90 98 06/13/16 06:59 87 06/13/16 06:13 37.3 89 18 189/91 97 Room Air 06/13/16 06:12 37.3 92 18 189/91 99 4.0 06/13/16 06:12 37.3 89 18 189/91 98 4.0 06/13/16 05:44 93 20 162/68 94 Nasal Cannula 4.0 06/13/16 05:42 37.7 90 20 175/100 97 4.0 06/13/16 05:23 37.3 87 12 184/86 97 4.0 06/13/16 04:10 87 20 179/86 95 Room Air 06/13/16 03:10 87 06/13/16 03:00 36.4 87 20 170/97 88 Room Air General Appearance: no apparent distress Eyes: PERRL ENT: hearing grossly normal Neck: supple, no adenopathy Respiratory/Chest: lungs clear, normal breath sounds, no respiratory distress, no accessory muscle use Cardiovascular: regular rate, rhythm, no edema, no gallop, no JVD, no murmur Abdomen: normal bowel sounds, non tender, soft, no organomegaly Neurologic/Psych: alert, normal mood/affect, oriented x 3 Skin: normal color, no jaundice, warm/dry, no rash Laboratory Results Last 24 Hours Test 06/13/16 03:00 06/13/16 03:02 06/13/16 05:14 06/13/16 07:55 White Blood Count 8.31 K/uL Red Blood Count 2.24 M/uL Hemoglobin 6.0 g/dL Hematocrit 18.2 % Mean Corpuscular Volume 81.3 fL Mean Corpuscular Hemoglobin 26.8 pg Mean Corpuscular Hemoglobin Concent 33.0 g/dl Platelet Count 188 K/uL Mean Platelet Volume 9.2 fL Neutrophils (%) (Auto) 78.8 % Lymphocytes (%) (Auto) 14.3 % Monocytes (%) (Auto) 4.0 % Eosinophils (%) (Auto) 2.2 % Basophils (%) (Auto) 0.6 % Neutrophils # (Auto) 6.55 K/uL Lymphocytes # (Auto) 1.19 K/uL Monocytes # (Auto) 0.33 K/uL Eosinophils # (Auto) 0.18 K/uL Basophils # (Auto) 0.05 K/uL RDW Standard Deviation 42.8 fL RDW Coefficient of Variation 14.2 % Immature Granulocyte % (Auto) 0.1 % Immature Granulocyte # (Auto) 0.01 K/uL Red Blood Cell Morphology Unremarkable Absolute Reticulocyte Count 0.04 10^6/uL Percent Reticulocyte Count 1.7 % Sodium Level 143 mmol/L Potassium Level 4.1 mmol/L Chloride Level 105 mmol/L Carbon Dioxide Level 20 mmol/L Anion Gap 18.0 mmol/L Blood Urea Nitrogen 92 mg/dl Creatinine 11.00 mg/dl Est Creatinine Clear Calc Drug Dose 6.5 ml/min Estimated GFR () 4.1 Estimated GFR (Non- 3.6 BUN/Creatinine Ratio 8.4 Random Glucose 154 mg/dl Estimated Average Glucose 120 mg/dl Hemoglobin A1c 5.8 % Calcium Level 7.7 mg/dl Iron Level 25 mcg/dl Total Iron Binding Capacity 225 mcg/dl Ferritin 149.2 ng/ml Total Bilirubin 0.7 mg/dl Direct Bilirubin 0.1 mg/dl Aspartate Amino Transf (AST/SGOT) 46 U/L Alanine Aminotransferase (ALT/SGPT) 63 U/L Alkaline Phosphatase 80 U/L Troponin I 1.390 ng/ml Pro-B-Type Natriuretic Peptide > 55039 pg/ml Total Protein 7.3 gm/dl Albumin 3.3 gm/dl Lipase 135 U/L Hepatitis C Antibody Screen NEG Vitamin B12 Level 1119 pg/mL Folate > 24.00 ng/mL Bedside Glucose 152 mg/dl Test 06/13/16 13:16 06/13/16 14:40 06/13/16 16:04 Bedside Glucose 111 mg/dl Hemoglobin 7.7 g/dL Hematocrit 23.0 % Impression Patient is a 51 year old female with melena, anemia with a Hgb of 7.7 after 2 units of blood. Differentials include upper GI bleed, ulcer, dark stools from iron, anemia from CKD Plan Attg addendum: I interviewed and examined pt, reviewed chart and labs. We are asked to see pt with CKD, likely with anemia secondary to kidney failure, for possiblity of GIB. pt with chronic normocytic anemia baseline hgb 7's now 6. She reports recent intermittent passage of dark stool, recent nausea. She reporrts gradual weight loss 60 lbs over the past year, which she says is intentional and related to dietary changes. On exam, she has borderline O 2 sat on supp O2, she has mild incr WOB and pauses to take a breath every 4-5 words. Her abd exam is benign. Labs show Bicarb 20, BUN 90. CXR shows mild volu overload. Her anemia is likely secondary to kidney failure, although I cannot rule out concomittant GI blood loss. Her nausea is likely related to uremia. I would defer endoscopic w/u until her volume status is better controlled. Will sign off - please refer to us when her resp status and metabolic abnl are improved.
[2016-06-13 17:20] LABS: PROTHROMBIN TIME (PATIENT) 10.9 SECONDS (9.0-12.0)
--- NOTE | 2016-06-13 17:26 | Nephrology Consultation ---
Nephrology Consultation Date & Providers Date of Consultation: Jun 13, 2016. Primary Care Provider: Osbaldo Craig MD Referring Provider: Reason for Consultation To provide a second opinion regarding the need to start hemodialysis History of Present Illness Ms. Salazar is a 51 year old female who is seen at the request of Dr. Romero in order to provide a second opinion regarding the need to start hemodialysis. Office records from the [facility] nephrology group were obtained , reviewed and scanned into the EMR. Ms. Salazar has AODM and HTN. She has undergone a thorough outpatient nephrology evaluation and was found to have advanced CKD with nephrotic range proteinuria. On several occasions she was informed that she was nearing ESRD and encouraged to have an AVF created and start dialysis education. Ms. Salazar had anxiety about starting dialysis. She postponed vascular access placement. Laboratory studies were obtained today which revealed creatinine 11.0, metabolic acidosis and progressive anemia with Hgb 6.0. Patient was admitted to [facility] for blood transfusion and initiation of HD. The patient has requested a second nephrology evaluation before starting dialysis. She wants reassurance that dialysis is indicated at this time and that she will still be able to pursue transplant evaluation. 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 ACHS SC 06/13/16 07:00 07/13/16 06:59 06/13/16 08:12 1 UNITS Glucose (Glucose 40% Gel) 15-30 GRAMS 15 GRAMS... UD PRN PO 06/13/16 04:45 07/13/16 04:44 Glucose (Glucose Chew Tab) 4-8 Tablets 4 Tabl... UD PRN PO 06/13/16 04:45 07/13/16 04:44 Dextrose (Dextrose 50% 50ML Syringe) 25-50ML OF 50% DW IV FOR... UD PRN IV 06/13/16 04:45 07/13/16 04:44 Glucagon (Glucagon Inj) 1 mg UD PRN SQ 06/13/16 04:45 07/13/16 04:44 Atorvastatin Calcium (Lipitor Tab) 40 mg HS PO 06/13/16 21:00 07/13/16 20:59 Calcitriol (Rocaltrol Cap) 0.25 mcg Q48H PO 06/13/16 09:00 07/13/16 08:59 06/13/16 08:08 0.25 MCG Calcium Acetate (Phoslo Cap) 667 mg TIDM PO 06/13/16 08:00 07/13/16 07:59 06/13/16 08:07 667 MG Insulin Glargine (Lantus Solostar Pen) 4 unit Q12 SC 06/13/16 09:00 07/13/16 08:59 06/13/16 08:25 4 UNIT Labetalol HCl (Normodyne Tab) 400 mg BID PO 06/13/16 06:30 07/13/16 06:29 06/13/16 08:07 400 MG Sodium Bicarbonate (Sodium Bicarbonate Tab) 650 mg BID PO 06/13/16 09:00 07/13/16 08:59 06/13/16 08:09 650 MG Vitamin B Complex/ Vit C/Folic Acid (Nephrocaps) 1 cap DAILY PO 06/13/16 09:00 07/13/16 08:59 06/13/16 08:08 1 CAP Ferrous Sulfate (Feosol Tab) 325 mg BID PO 06/13/16 09:00 07/13/16 08:59 06/13/16 08:08 325 MG Nifedipine 90 mg 90 mg DAILY PO 06/13/16 09:00 07/13/16 08:59 06/13/16 08:09 90 MG Clindamycin Phosphate (Cleocin 600mg/ 54ml D5W) 54 ml @ 100 mls/hr PREOP IV 06/14/16 06:00 06/14/16 18:00 Pantoprazole Sodium (Protonix Tab) 40 mg BID PO 06/14/16 09:00 07/14/16 08:59 UNV Family History No pertinent family history Negative for CKD/ESRD Social History Smoking Status: Former Smoker . 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 Remote h/o tobacco use Review of Systems Constitutional: No fever Respiratory: No shortness of breath Cardiovascular: No chest pain Abdomen: No pain A complete review of systems was performed. Pertinent positives are noted above. All other systems are negative. Physical Exam Date Time Temp Pulse Resp B/P Pulse Ox O2 Delivery O2 Flow Rate FiO2 06/13/16 16:40 93 Nasal Cannula 06/13/16 16:00 36.6 82 16 132/67 93 Nasal Cannula 4.0 06/13/16 16:00 93 Nasal Cannula 4.0 06/13/16 13:22 85 06/13/16 12:00 36.6 82 16 140/68 93 Nasal Cannula 5.0 06/13/16 12:00 93 Nasal Cannula 5.0 06/13/16 11:08 84 06/13/16 10:00 82 16 166/97 95 Nasal Cannula 4.0 06/13/16 09:35 37.0 83 16 179/96 96 4.0 06/13/16 09:24 96 Nasal Cannula 4.0 06/13/16 09:14 37.1 83 16 189/99 96 4.0 06/13/16 09:05 37.1 83 16 189/88 96 4.0 06/13/16 08:35 37.1 87 16 179/121 95 4.0 06/13/16 08:20 37.2 81 16 184/96 96 4.0 06/13/16 08:00 36.7 82 16 173/128 97 4.0 06/13/16 07:12 36.7 88 16 190/90 98 06/13/16 06:59 87 06/13/16 06:13 37.3 89 18 189/91 97 Room Air 06/13/16 06:12 37.3 92 18 189/91 99 4.0 06/13/16 06:12 37.3 89 18 189/91 98 4.0 06/13/16 05:44 93 20 162/68 94 Nasal Cannula 4.0 06/13/16 05:42 37.7 90 20 175/100 97 4.0 06/13/16 05:23 37.3 87 12 184/86 97 4.0 06/13/16 04:10 87 20 179/86 95 Room Air 06/13/16 03:10 87 06/13/16 03:00 36.4 87 20 170/97 88 Room Air General Appearance: no apparent distress Head: normocephalic, atraumatic Eyes: PERRL, EOMI Neck: no adenopathy Respiratory/Chest: lungs clear Cardiovascular: regular rate, rhythm Abdomen/GI: normal bowel sounds, non tender, soft Back: no CVA tenderness Extremities/Musculoskelatal: no calf tenderness, no pedal edema Neurologic/Psych: alert, oriented x 3 Lymphatic: no adenopathy Laboratory Results Last 24 Hours Test 06/13/16 03:00 06/13/16 03:02 06/13/16 05:14 06/13/16 07:55 White Blood Count 8.31 K/uL Red Blood Count 2.24 M/uL Hemoglobin 6.0 g/dL Hematocrit 18.2 % Mean Corpuscular Volume 81.3 fL Mean Corpuscular Hemoglobin 26.8 pg Mean Corpuscular Hemoglobin Concent 33.0 g/dl Platelet Count 188 K/uL Mean Platelet Volume 9.2 fL Neutrophils (%) (Auto) 78.8 % Lymphocytes (%) (Auto) 14.3 % Monocytes (%) (Auto) 4.0 % Eosinophils (%) (Auto) 2.2 % Basophils (%) (Auto) 0.6 % Neutrophils # (Auto) 6.55 K/uL Lymphocytes # (Auto) 1.19 K/uL Monocytes # (Auto) 0.33 K/uL Eosinophils # (Auto) 0.18 K/uL Basophils # (Auto) 0.05 K/uL RDW Standard Deviation 42.8 fL RDW Coefficient of Variation 14.2 % Immature Granulocyte % (Auto) 0.1 % Immature Granulocyte # (Auto) 0.01 K/uL Red Blood Cell Morphology Unremarkable Absolute Reticulocyte Count 0.04 10^6/uL Percent Reticulocyte Count 1.7 % Sodium Level 143 mmol/L Potassium Level 4.1 mmol/L Chloride Level 105 mmol/L Carbon Dioxide Level 20 mmol/L Anion Gap 18.0 mmol/L Blood Urea Nitrogen 92 mg/dl Creatinine 11.00 mg/dl Est Creatinine Clear Calc Drug Dose 6.5 ml/min Estimated GFR () 4.1 Estimated GFR (Non- 3.6 BUN/Creatinine Ratio 8.4 Random Glucose 154 mg/dl Estimated Average Glucose 120 mg/dl Hemoglobin A1c 5.8 % Calcium Level 7.7 mg/dl Iron Level 25 mcg/dl Total Iron Binding Capacity 225 mcg/dl Ferritin 149.2 ng/ml Total Bilirubin 0.7 mg/dl Direct Bilirubin 0.1 mg/dl Aspartate Amino Transf (AST/SGOT) 46 U/L Alanine Aminotransferase (ALT/SGPT) 63 U/L Alkaline Phosphatase 80 U/L Troponin I 1.390 ng/ml Pro-B-Type Natriuretic Peptide > 26236 pg/ml Total Protein 7.3 gm/dl Albumin 3.3 gm/dl Lipase 135 U/L Hepatitis C Antibody Screen NEG Vitamin B12 Level 1119 pg/mL Folate > 24.00 ng/mL Bedside Glucose 152 mg/dl Test 06/13/16 13:16 06/13/16 14:40 06/13/16 16:53 Bedside Glucose 111 mg/dl Hemoglobin 7.7 g/dL Hematocrit 23.0 % Prothrombin Time 10.9 SECONDS Prothromb Time International Ratio 1.0 Activated Partial Thromboplast Time 26.9 SECONDS Partial Thromboplastin Ratio 1.0 Impression # End stage renal disease due to diabetic nephropathy - initiation of HD is indicated at this time # Anemia # AODM # HTN Recommendations Outpatient nephrology records reviewed and discussed in detail with Ms. Salazar this evening. She understands that she is at ESRD and requires initiation of renal replacement therapy. She expressed anxiety about starting dialysis and was very concerned that it may preclude her ability to be listed for a kidney transplant in the future. I have reassured her that dialysis is necessary and her nephrology team will assist her with the transplant evaluation once her condition has stabilized. We have reviewed the indications/benefits & risks to vascular access placement and HD in detail. The patient voiced understanding and indicated that she is agreeable to starting dialysis tomorrow. 60 minute visit provided to the patient today. Will sign off. Please call if further assistance is needed.
[2016-06-13] MEDS: ATORVASTATIN 40 MG TAB PO SCH (22:13)
[2016-06-14] VITALS (20 sets, daily range): BP systolic 126–157; BP diastolic 54–107; PULSE 73–82; TEMP 36.1–36.9; O2SAT 2–100
[2016-06-14] MEDS ORDERED: CLINDAMYCIN 600 MG/54 ML D5W IV SCH (06:00)
[2016-06-14] MEDS ORDERED: CLINDAMYCIN IV 600 MG in DEXTROSE 5% ADD-VANTAGE 50ML 50 ML IV ONE (06:00)
[2016-06-14 06:12] LABS: HEMATOCRIT 21.6 % (37-47); MEAN CELL VOLUME 81.5 fL (80-100); MEAN CORPUSCULAR HEMOGLOBIN 27.2 pg (25-34); MEAN CORPUSCULAR HGB CONC 33.3 g/dl (32-36); MEAN PLATELET VOLUME 10.2 fL (7.4-10.4); PLATELET COUNT 181 K/uL (130-400); RED BLOOD COUNT 2.65 M/uL (4.2-5.4); WHITE BLOOD COUNT 6.03 K/uL (4.8-10.8)
--- NOTE | 2016-06-14 06:55 | Nephrology Progress Note ---
Nephrology Progress Note Date of Service: Jun 14, 2016. Subjective 51 yo female with presumed diabetes/htn as cause of her ESRD. serological workup was negative. no renal biopsy done. pt has been more tired over the past 2 months. did lose 60 pounds over past two years which she says was intentional from changing her diet. presented with hg of 6 and given two units of blood and energy levels much better. pt had second opinion from other nephrology group and is now agreeable to start dialysis. currently npo for possible tunneled line today. Objective Date Time Temp Pulse Resp B/P Pulse Ox O2 Delivery O2 Flow Rate FiO2 06/14/16 04:49 96 Nasal Cannula 4.0 06/14/16 04:00 Nasal Cannula 4.0 06/14/16 03:38 36.9 80 16 126/54 96 Nasal Cannula 2.0 06/13/16 23:59 Nasal Cannula 4.0 06/13/16 23:06 36.7 83 18 131/65 97 Nasal Cannula 2.0 06/13/16 20:00 Nasal Cannula 4.0 06/13/16 19:26 36.7 79 22 141/70 96 Nasal Cannula 2.0 06/13/16 16:40 93 Nasal Cannula 06/13/16 16:00 36.6 82 16 132/67 93 Nasal Cannula 4.0 06/13/16 16:00 93 Nasal Cannula 4.0 06/13/16 13:22 85 06/13/16 12:00 36.6 82 16 140/68 93 Nasal Cannula 5.0 06/13/16 12:00 93 Nasal Cannula 5.0 06/13/16 11:08 84 06/13/16 10:00 82 16 166/97 95 Nasal Cannula 4.0 06/13/16 09:35 37.0 83 16 179/96 96 4.0 06/13/16 09:24 96 Nasal Cannula 4.0 06/13/16 09:14 37.1 83 16 189/99 96 4.0 06/13/16 09:05 37.1 83 16 189/88 96 4.0 06/13/16 08:35 37.1 87 16 179/121 95 4.0 06/13/16 08:20 37.2 81 16 184/96 96 4.0 06/13/16 08:00 36.7 82 16 173/128 97 4.0 06/13/16 07:12 36.7 88 16 190/90 98 06/13/16 06:59 87 Physical Exam: General-aaox3 Eyes-no scleral icterus ENT-mmm Neck-supple Lungs-cta Heart-rrr Abdomen-bs+ s/nt/nd Extremities-mild edema Neuro-nonfocal Current Inpatient Medications Medications (Trade) Dose Ordered Sig/Ben Route Start Time Stop Time Status Last Admin Dose Admin Magnesium Hydroxide (Milk Of Magnesia Susp) 30 ml Q12H PRN PO 06/13/16 04:45 07/13/16 04:44 Insulin Aspart (novoLOG ASPART) SLIDING SCALE If C... ACHS SC 06/13/16 07:00 07/13/16 06:59 06/13/16 18:01 4 UNITS Glucose (Glucose 40% Gel) 15-30 GRAMS 15 GRAMS... UD PRN PO 06/13/16 04:45 07/13/16 04:44 Glucose (Glucose Chew Tab) 4-8 Tablets 4 Tabl... UD PRN PO 06/13/16 04:45 07/13/16 04:44 Dextrose (Dextrose 50% 50ML Syringe) 25-50ML OF 50% DW IV FOR... UD PRN IV 06/13/16 04:45 07/13/16 04:44 Glucagon (Glucagon Inj) 1 mg UD PRN SQ 06/13/16 04:45 07/13/16 04:44 Atorvastatin Calcium (Lipitor Tab) 40 mg HS PO 06/13/16 21:00 07/13/16 20:59 06/13/16 22:13 40 MG Calcitriol (Rocaltrol Cap) 0.25 mcg Q48H PO 06/13/16 09:00 07/13/16 08:59 06/13/16 08:08 0.25 MCG Calcium Acetate (Phoslo Cap) 667 mg TIDM PO 06/13/16 08:00 07/13/16 07:59 06/13/16 18:51 667 MG Insulin Glargine (Lantus Solostar Pen) 4 unit Q12 SC 06/13/16 09:00 07/13/16 08:59 06/13/16 08:25 4 UNIT Labetalol HCl (Normodyne Tab) 400 mg BID PO 06/13/16 06:30 07/13/16 06:29 06/13/16 22:11 400 MG Sodium Bicarbonate (Sodium Bicarbonate Tab) 650 mg BID PO 06/13/16 09:00 07/13/16 08:59 06/13/16 22:13 650 MG Vitamin B Complex/ Vit C/Folic Acid (Nephrocaps) 1 cap DAILY PO 06/13/16 09:00 07/13/16 08:59 06/13/16 08:08 1 CAP Ferrous Sulfate (Feosol Tab) 325 mg BID PO 06/13/16 09:00 07/13/16 08:59 06/13/16 22:12 325 MG Nifedipine 90 mg 90 mg DAILY PO 06/13/16 09:00 07/13/16 08:59 06/13/16 08:09 90 MG Clindamycin Phosphate (Cleocin 600mg/ 54ml D5W) 54 ml @ 100 mls/hr PREOP IV 06/14/16 06:00 06/14/16 18:00 Pantoprazole Sodium (Protonix Tab) 40 mg BID PO 06/14/16 09:00 07/14/16 08:59 Last 24 Hours Test 06/13/16 07:55 06/13/16 13:16 06/13/16 14:40 06/13/16 16:53 Bedside Glucose 152 mg/dl 111 mg/dl Hemoglobin 7.7 g/dL Hematocrit 23.0 % Prothrombin Time 10.9 SECONDS Prothromb Time International Ratio 1.0 Activated Partial Thromboplast Time 26.9 SECONDS Partial Thromboplastin Ratio 1.0 Test 06/13/16 17:22 06/13/16 22:03 06/14/16 05:21 Bedside Glucose 193 mg/dl 130 mg/dl White Blood Count 6.03 K/uL Red Blood Count 2.65 M/uL Hemoglobin 7.2 g/dL Hematocrit 21.6 % Mean Corpuscular Volume 81.5 fL Mean Corpuscular Hemoglobin 27.2 pg Mean Corpuscular Hemoglobin Concent 33.3 g/dl RDW Standard Deviation 42.0 fL RDW Coefficient of Variation 14.0 % Platelet Count 181 K/uL Mean Platelet Volume 10.2 fL Assessment & Plan ESRD-pt is agreeable to start dialysis at the [facility] unit. will speak to telephonic case manager to start process of accepting patient at that unit. will hopefully be able to get tunneled line today-initially on admission was not agreeable to start. currently npo. will do short dialysis treatment today and do daily dialysis to help remove toxins from body and help remove fluid which should also help with bp. Anemia of Renal Failure-pt presented with hg of 6 and likely with anemia of renal failure. did have 60 pound weight loss which she says is intentional from dietary choices and was over two years. would like to start procrit on her but would like to give her the form that explains the side effects prior to initiation of procrit to make sure she is agreeable with it. GI saw patient and would like her to be more stable prior to doing colonoscopy. for now transfuse prn. Psych-initially consulted psych to make sure she is of sound mind since she was refusing dialysis with a gfr of 4. however, she assures me that she likes to do research prior to any decision and was reassured after speaking with other front facer. will cancel psych consult at this time. Transplant-unclear if she has the social support system necessary for a transplant. but have made a referral to [facility] transplant to be evaluated. will stop the sodium bicarb tablets once she starts dialysis.
[2016-06-14] MEDS: INSULIN ASPART 100 UNITS/ML 3 ML PEN SC SCH ×4 (07:00→20:40)
[2016-06-14 07:09] LABS: BUN/CREATININE RATIO 8.7 (10-20); CALCIUM 7.7 mg/dl (8.5-10.1); POTASSIUM 4.1 mmol/L (3.5-5.1)
[2016-06-14] MEDS: CALCIUM ACETATE 667MG GELCAP PO SCH ×3 (07:30→15:37)
[2016-06-14] MEDS: INSULIN GLARGINE SOLOSTAR 100 UNITS/ML 3 ML PEN SC SCH ×2 (08:23→20:46)
--- NOTE | 2016-06-14 08:25 | Progress Note ---
Progress Note Pt for permcath insertion today. After further discussion with Dr Romero, pt is agreeable. Procedure, risks, benefits, and alternatives discussed with pt, she expresses understanding and agreement.
[2016-06-14] MEDS ORDERED: PANTOprazole SOD 40 MG TAB PO SCH (09:00)
[2016-06-14] MEDS: LABETALOL HCL 200 MG TAB PO SCH ×2 (09:22→20:43)
[2016-06-14] MEDS: NEPHROCAPS PO SCH (09:22)
[2016-06-14] MEDS: FERROUS SULFATE 325 MG TAB PO SCH ×2 (09:22→20:44)
[2016-06-14] MEDS: PANTOprazole SOD 40 MG TAB PO SCH ×2 (09:22→20:43)
[2016-06-14] MEDS: NIFEdipine 30 MG CR TAB PO SCH (09:23)
[2016-06-14] MEDS: SODIUM BICARBONATE 650 MG TAB PO SCH ×2 (09:23→20:42)
--- NOTE | 2016-06-14 10:12 | Progress Note ---
Progress Note Patient for insertion of permcath today. I have discussed the risks options and benefits of the procedure with the patient. The patient understands the risks options and benefits and agrees to the procedure. I have examined the patient, reviewed the History & Physical and in the interval since the performance of the History & Physical I have noted the following changes of clinical significance: No changes noted
--- NOTE | 2016-06-14 10:13 | Procedure Note ---
Pre-Mod Sedation Assessment General Date of Moderate Sedation: Jun 14, 2016. Vital Signs: Vital Signs Past 12 Hours Date Time Temp Pulse Resp B/P Pulse Ox O2 Delivery O2 Flow Rate FiO2 06/14/16 08:21 36.9 82 16 147/67 100 Nasal Cannula 3.0 06/14/16 04:49 96 Nasal Cannula 4.0 06/14/16 04:00 Nasal Cannula 4.0 06/14/16 03:38 36.9 80 16 126/54 96 Nasal Cannula 2.0 06/13/16 23:59 Nasal Cannula 4.0 06/13/16 23:06 36.7 83 18 131/65 97 Nasal Cannula 2.0 Pre-Sedation Airway Assessment Oral Cavity: Dentures Smoking Status: Former Smoker Mallampati Classification: Class I ASA Classification: Class II Notes The planned sedation has been discussed with the patient and consent obtained. I have identified the patient, determined the appropriateness of sedation and have assessed the patient immediately prior to the procedure. All medicine(s) and interventions are by my order.
[2016-06-14] MEDS ORDERED: HEPARIN SOD (PORCINE) 5000 UNIT/ML 1 ML VIAL ONE (10:38)
[2016-06-14] MEDS ORDERED: MIDAZOLAM HCL 1 MG/ML 2ML VIAL ONE (10:38)
[2016-06-14] MEDS ORDERED: FENTANYL CITRATE INJ 50 MCG/1 ML 2 ML VIAL ONE (10:38)
--- NOTE | 2016-06-14 11:07 | Progress Note ---
Medicine Progress Note Date & Time of Visit: Jun 14, 2016 at 10:52. Subjective Pt was seen and examined Lying in bed with no distress Pt said d that she feels fine she is going this morning to get insertion of the perm cath to start HD Pt denies any fever, palpitation, dizziness and SOB Objective Last 8 Hrs Date Time Temp Pulse Resp B/P Pulse Ox O2 Delivery O2 Flow Rate FiO2 06/14/16 08:21 36.9 82 16 147/67 100 Nasal Cannula 3.0 06/14/16 04:49 96 Nasal Cannula 4.0 06/14/16 04:00 Nasal Cannula 4.0 06/14/16 03:38 36.9 80 16 126/54 96 Nasal Cannula 2.0 Physical Exam: General- very pleasant, no acute distress Head- atraumatic Eyes- PERRL, EOMI ENT- oropharynx clear Neck- supple, no JVD Lungs- clear to auscultation and percussion, no wheezing Heart- regular rhythm; no murmur Abdomen- normal bowel sounds, soft, mild tender with deep palpation across the lower abdominal Extremities- no pretibial edema, no calf tenderness Neuro- alert, oriented x 3; PERRL, EOMI Skin- warm & dry Laboratory Results: Last 24 Hours Test 06/13/16 13:16 06/13/16 14:40 06/13/16 16:53 06/13/16 17:22 Bedside Glucose 111 mg/dl 193 mg/dl Hemoglobin 7.7 g/dL Hematocrit 23.0 % Prothrombin Time 10.9 SECONDS Prothromb Time International Ratio 1.0 Activated Partial Thromboplast Time 26.9 SECONDS Partial Thromboplastin Ratio 1.0 Test 06/13/16 22:03 06/14/16 05:21 06/14/16 06:49 Bedside Glucose 130 mg/dl 102 mg/dl White Blood Count 6.03 K/uL Red Blood Count 2.65 M/uL Hemoglobin 7.2 g/dL Hematocrit 21.6 % Mean Corpuscular Volume 81.5 fL Mean Corpuscular Hemoglobin 27.2 pg Mean Corpuscular Hemoglobin Concent 33.3 g/dl RDW Standard Deviation 42.0 fL RDW Coefficient of Variation 14.0 % Platelet Count 181 K/uL Mean Platelet Volume 10.2 fL Sodium Level 140 mmol/L Potassium Level 4.1 mmol/L Chloride Level 106 mmol/L Carbon Dioxide Level 22 mmol/L Anion Gap 12.0 mmol/L Blood Urea Nitrogen 96 mg/dl Creatinine 11.00 mg/dl Est Creatinine Clear Calc Drug Dose 6.5 ml/min Estimated GFR () 4.1 Estimated GFR (Non- 3.6 BUN/Creatinine Ratio 8.7 Random Glucose 103 mg/dl Calcium Level 7.7 mg/dl Assessment & Plan Symptomatic Anemia Mostly related to Anemia of chronic disease Hgb of 6.0 on admission clinically patient felt weak and short of breath Recieved 2 units pRBCs yesterday Hgb today 7.2 Will transfuse 2 units prbc today continue monitor h/h and transfuse if h/h below 8 GI was consult and deferred and scope at this time until her renal status stable She will need outpatient GI workup NPO this morning for the procedure PPI CKD stage V creatine up to 11.0 on admission with elevated anion gap no AV fistula or tunneled catheter in place Vascular consulted and Pt agreed to get the perm cath She is schedule to go to [place] today She had a second opinion from [place] [facility] that recommended to her that she needs to start HD Pt agreed to start HD during this admission continue sodium bicarb, phoslo, nephrocaps, and calcitriol Avoid nephrotoxic agent Insulin Dependent DM2 Control continue Lantus sliding scale insulin HbA1c 5.8 (06/13/16) HTN elevated due to missed dose continue home medications Continue monitor BP Elevated troponin Mostly related to CKD and low hgb denies any chest pain EKG did not show any significant ST changes stable DVT ppx -->SCDs FULL CODE Current Inpatient Medications: Current Inpatient Medications Medications (Trade) Dose Ordered Sig/Ben Route Start Time Stop Time Status Last Admin Dose Admin Magnesium Hydroxide (Milk Of Magnesia Susp) 30 ml Q12H PRN PO 06/13/16 04:45 07/13/16 04:44 Insulin Aspart (novoLOG ASPART) SLIDING SCALE If C... ACHS SC 06/13/16 07:00 07/13/16 06:59 06/13/16 18:01 4 UNITS Glucose (Glucose 40% Gel) 15-30 GRAMS 15 GRAMS... UD PRN PO 06/13/16 04:45 07/13/16 04:44 Glucose (Glucose Chew Tab) 4-8 Tablets 4 Tabl... UD PRN PO 06/13/16 04:45 07/13/16 04:44 Dextrose (Dextrose 50% 50ML Syringe) 25-50ML OF 50% DW IV FOR... UD PRN IV 06/13/16 04:45 07/13/16 04:44 Glucagon (Glucagon Inj) 1 mg UD PRN SQ 06/13/16 04:45 07/13/16 04:44 Atorvastatin Calcium (Lipitor Tab) 40 mg HS PO 06/13/16 21:00 07/13/16 20:59 06/13/16 22:13 40 MG Calcitriol (Rocaltrol Cap) 0.25 mcg Q48H PO 06/13/16 09:00 07/13/16 08:59 06/13/16 08:08 0.25 MCG Calcium Acetate (Phoslo Cap) 667 mg TIDM PO 06/13/16 08:00 07/13/16 07:59 06/13/16 18:51 667 MG Insulin Glargine (Lantus Solostar Pen) 4 unit Q12 SC 06/13/16 09:00 07/13/16 08:59 06/13/16 08:25 4 UNIT Labetalol HCl (Normodyne Tab) 400 mg BID PO 06/13/16 06:30 07/13/16 06:29 06/14/16 09:22 400 MG Sodium Bicarbonate (Sodium Bicarbonate Tab) 650 mg BID PO 06/13/16 09:00 07/13/16 08:59 06/14/16 09:23 650 MG Vitamin B Complex/ Vit C/Folic Acid (Nephrocaps) 1 cap DAILY PO 06/13/16 09:00 07/13/16 08:59 06/14/16 09:22 1 CAP Ferrous Sulfate (Feosol Tab) 325 mg BID PO 06/13/16 09:00 07/13/16 08:59 06/14/16 09:22 325 MG Nifedipine 90 mg 90 mg DAILY PO 06/13/16 09:00 07/13/16 08:59 06/14/16 09:23 90 MG Clindamycin Phosphate (Cleocin 600mg/ 54ml D5W) 54 ml @ 100 mls/hr PREOP IV 06/14/16 06:00 06/14/16 18:00 06/14/16 10:50 100 MLS/HR Pantoprazole Sodium (Protonix Tab) 40 mg BID PO 06/14/16 09:00 07/14/16 08:59 06/14/16 09:22 40 MG
[2016-06-14] MEDS ORDERED: FENTANYL CITRATE INJ 50 MCG/1 ML 2 ML VIAL IV ONE (11:15)
[2016-06-14] MEDS ORDERED: LIDOCAINE HCL 1% 20 ML VIAL INJ ONE (11:15)
[2016-06-14] MEDS ORDERED: MIDAZOLAM HCL 1 MG/ML 2ML VIAL IV ONE (11:15)
[2016-06-14] MEDS ORDERED: HEPARIN SOD (PORCINE) 5000 UNIT/ML 1 ML VIAL IV ONE (11:39)
--- NOTE | 2016-06-14 11:51 | [facility] Post Operative Brief Note ---
Immediate Operative Summary Operative Date Jun 14, 2016. Pre-Operative Diagnosis acute renal failure Post-Operative Diagnosis same Procedure(s) Performed Insertion Of Perm Catheter, Right Internal Jugular Approach, Ultrasound Localization Of Right Internal Jugular Vein, Fluoroscopy For Positioning, Moderate Concious Sedation [address] García Furnace Puncher Surgeon(s) none Estimated Blood Loss 20 ml Findings tip in distal SVC Specimens none Anesthesia Local with moderate conscious sedation Complication(s) None Disposition
--- NOTE | 2016-06-14 11:51 | Procedure Note ---
Post-Moderate Sedation Plan General Date of Moderate Sedation Jun 14, 2016. Vital Signs: Vital Signs Past 12 Hours Date Time Temp Pulse Resp B/P Pulse Ox O2 Delivery O2 Flow Rate FiO2 06/14/16 08:21 36.9 82 16 147/67 100 Nasal Cannula 3.0 06/14/16 04:49 96 Nasal Cannula 4.0 06/14/16 04:00 Nasal Cannula 4.0 06/14/16 03:38 36.9 80 16 126/54 96 Nasal Cannula 2.0 06/13/16 23:59 Nasal Cannula 4.0 Review - Discharge Plan Post Moderate Sedation Plan: On clinical assessment, the patient appears to have tolerated the conscious sedation without complications. Patient is recovering as anticipated. Patient will continue to be monitored by nursing and may be discharged when conscious sedation discharge criteria are met.
[2016-06-14] MEDS ORDERED: NURSING DECISION MEDICATION ORDER ONE (15:00)
[2016-06-14] MEDS: ACETAMINOPHEN 325 MG TAB PO PRN (15:37)
[2016-06-14] MEDS: ATORVASTATIN 40 MG TAB PO SCH (20:42)
[2016-06-15] VITALS (33 sets, daily range): BP systolic 143–193; BP diastolic 74–96; PULSE 70–83; TEMP 36.6–37; O2SAT 94–98
[2016-06-15] MEDS: ACETAMINOPHEN 325 MG TAB PO PRN ×3 (00:14→19:54)
[2016-06-15] MEDS: INSULIN ASPART 100 UNITS/ML 3 ML PEN SC SCH ×4 (10:11→21:00)
[2016-06-15] MEDS: CALCIUM ACETATE 667MG GELCAP PO SCH ×3 (10:13→16:39)
[2016-06-15] MEDS: NEPHROCAPS PO SCH (10:16)
[2016-06-15] MEDS: LABETALOL HCL 200 MG TAB PO SCH ×2 (10:16→19:56)
[2016-06-15] MEDS: CALCITRIOL 0.25 MCG CAP PO SCH (10:17)
[2016-06-15] MEDS: NIFEdipine 30 MG CR TAB PO SCH (10:17)
[2016-06-15] MEDS: SODIUM BICARBONATE 650 MG TAB PO SCH ×2 (10:17→19:55)
[2016-06-15] MEDS: PANTOprazole SOD 40 MG TAB PO SCH ×2 (10:18→19:54)
[2016-06-15] MEDS: INSULIN GLARGINE SOLOSTAR 100 UNITS/ML 3 ML PEN SC SCH ×2 (10:22→21:00)
[2016-06-15] MEDS: FERROUS SULFATE 325 MG TAB PO SCH ×2 (10:24→19:55)
[2016-06-15] MEDS: HydrALAZINE HCL 20 MG/ML VIAL IV. PRN (11:11)
[2016-06-15 11:37] LABS: HEMATOCRIT 26.5 % (37-47); MEAN CELL VOLUME 80.1 fL (80-100); MEAN CORPUSCULAR HEMOGLOBIN 27.2 pg (25-34); MEAN PLATELET VOLUME 9.2 fL (7.4-10.4); PLATELET COUNT 169 K/uL (130-400); RED BLOOD COUNT 3.31 M/uL (4.2-5.4); WHITE BLOOD COUNT 5.89 K/uL (4.8-10.8)
[2016-06-15 12:29] LABS: BUN/CREATININE RATIO 6.5 (10-20); CALCIUM 7.8 mg/dl (8.5-10.1); CREATININE 4.8 mg/dl (0.60-1.20); POTASSIUM 3.7 mmol/L (3.5-5.1)
[2016-06-15] MEDS ORDERED: BUMETANIDE 1 MG TAB PO ONE (12:45)
--- NOTE | 2016-06-15 12:47 | Nephrology Progress Note ---
Nephrology Progress Note Date of Service: Jun 15, 2016. Subjective tolerated HD well today; no n/v/MANCIA/sob; some pain over TDC site still; no bleeding; fatigue improved Objective Date Time Temp Pulse Resp B/P Pulse Ox O2 Delivery O2 Flow Rate FiO2 06/15/16 10:15 Nasal Cannula 2.0 06/15/16 10:15 37.0 83 18 193/86 95 Room Air 06/15/16 09:30 37.0 75 146/75 06/15/16 09:15 70 151/75 06/15/16 09:00 70 143/74 06/15/16 08:45 79 187/90 06/15/16 08:30 77 186/88 06/15/16 08:15 80 192/92 06/15/16 08:00 77 176/76 06/15/16 07:45 77 175/95 06/15/16 07:30 76 184/87 06/15/16 07:15 76 179/87 06/15/16 07:00 73 176/82 06/15/16 06:45 75 169/83 06/15/16 06:30 76 175/85 06/15/16 06:20 76 172/90 06/15/16 06:00 36.6 74 177/90 06/15/16 04:49 97 Nasal Cannula 2.0 06/15/16 04:00 37.0 72 18 174/84 98 Nasal Cannula 2.5 06/15/16 04:00 Nasal Cannula 2.0 06/15/16 00:03 37.0 78 19 176/79 97 Room Air 06/14/16 23:59 Nasal Cannula 2.0 06/14/16 20:00 Nasal Cannula 2.0 06/14/16 19:45 80 22 157/86 97 06/14/16 18:25 36.1 75 148/73 06/14/16 18:15 75 140/69 06/14/16 18:00 75 141/59 06/14/16 17:45 75 143/66 06/14/16 17:30 75 144/71 06/14/16 17:15 75 144/70 06/14/16 17:00 75 142/71 06/14/16 16:45 75 139/73 06/14/16 16:30 76 148/69 1/6/17 16:15 75 145/73 06/14/16 16:00 36.4 75 152/71 06/14/16 16:00 2 Nasal Cannula 06/14/16 15:51 36.6 76 16 140/71 95 Nasal Cannula 06/14/16 14:30 36.8 75 18 141/67 94 06/14/16 13:30 36.8 74 18 140/68 93 2.0 06/14/16 12:50 36.7 78 20 140/107 97 2.0 Physical Exam: General-A& 0 x 3 on 02nc Eyes-eomi ENT-mmm Neck-supple Lungs-ctab, TDC R chest Heart-rrr Abdomen-soft nt +bs Extremities-no c/c Neuro-hauser, fluent speech Current Inpatient Medications Medications (Trade) Dose Ordered Sig/Ben Route Start Time Stop Time Status Last Admin Dose Admin Magnesium Hydroxide (Milk Of Magnesia Susp) 30 ml Q12H PRN PO 06/13/16 04:45 07/13/16 04:44 Insulin Aspart (novoLOG ASPART) SLIDING SCALE If C... ACHS SC 06/13/16 07:00 07/13/16 06:59 06/13/16 18:01 4 UNITS Glucose (Glucose 40% Gel) 15-30 GRAMS 15 GRAMS... UD PRN PO 06/13/16 04:45 07/13/16 04:44 Glucose (Glucose Chew Tab) 4-8 Tablets 4 Tabl... UD PRN PO 06/13/16 04:45 07/13/16 04:44 Dextrose (Dextrose 50% 50ML Syringe) 25-50ML OF 50% DW IV FOR... UD PRN IV 06/13/16 04:45 07/13/16 04:44 Glucagon (Glucagon Inj) 1 mg UD PRN SQ 06/13/16 04:45 07/13/16 04:44 Atorvastatin Calcium (Lipitor Tab) 40 mg HS PO 06/13/16 21:00 07/13/16 20:59 06/14/16 20:42 40 MG Calcitriol (Rocaltrol Cap) 0.25 mcg Q48H PO 06/13/16 09:00 07/13/16 08:59 06/15/16 10:17 0.25 MCG Calcium Acetate (Phoslo Cap) 667 mg TIDM PO 06/13/16 08:00 07/13/16 07:59 06/15/16 10:13 667 MG Insulin Glargine (Lantus Solostar Pen) 4 unit Q12 SC 06/13/16 09:00 07/13/16 08:59 06/15/16 10:22 4 UNIT Labetalol HCl (Normodyne Tab) 400 mg BID PO 06/13/16 06:30 07/13/16 06:29 06/15/16 10:16 400 MG Sodium Bicarbonate (Sodium Bicarbonate Tab) 650 mg BID PO 06/13/16 09:00 07/13/16 08:59 06/15/16 10:17 650 MG Vitamin B Complex/ Vit C/Folic Acid (Nephrocaps) 1 cap DAILY PO 06/13/16 09:00 07/13/16 08:59 06/15/16 10:16 1 CAP Ferrous Sulfate (Feosol Tab) 325 mg BID PO 06/13/16 09:00 07/13/16 08:59 06/15/16 10:24 325 MG Nifedipine (Procardia Xl Tab) 90 mg DAILY PO 06/13/16 09:00 07/13/16 08:59 06/15/16 10:17 90 MG Pantoprazole Sodium (Protonix Tab) 40 mg BID PO 06/14/16 09:00 07/14/16 08:59 06/15/16 10:18 40 MG Acetaminophen (Tylenol Tab) 650 mg Q6H PRN PO 06/14/16 15:15 07/14/16 15:14 06/15/16 00:14 650 MG Hydralazine HCl (HydrALAZINE INJ) 10 mg Q6 PRN IV. 06/15/16 07:45 07/15/16 07:44 06/15/16 11:11 10 MG Last 24 Hours Test 06/14/16 16:30 06/14/16 16:33 06/14/16 20:25 06/15/16 03:26 Bedside Glucose 153 mg/dl 175 mg/dl 107 mg/dl Hepatitis B Surface Antigen NEG Test 06/15/16 10:01 06/15/16 11:08 06/15/16 11:30 Bedside Glucose 146 mg/dl 182 mg/dl White Blood Count 5.89 K/uL Red Blood Count 3.31 M/uL Hemoglobin 9.0 g/dL Hematocrit 26.5 % Mean Corpuscular Volume 80.1 fL Mean Corpuscular Hemoglobin 27.2 pg Mean Corpuscular Hemoglobin Concent 34.0 g/dl RDW Standard Deviation 40.2 fL RDW Coefficient of Variation 13.9 % Platelet Count 169 K/uL Mean Platelet Volume 9.2 fL Sodium Level 141 mmol/L Potassium Level 3.7 mmol/L Chloride Level 106 mmol/L Carbon Dioxide Level 24 mmol/L Anion Gap 11.0 mmol/L Creatinine 4.80 mg/dl Est Creatinine Clear Calc Drug Dose 15.0 ml/min Estimated GFR () 11.3 Estimated GFR (Non- 9.7 BUN/Creatinine Ratio 6.5 Random Glucose 192 mg/dl Calcium Level 7.8 mg/dl Assessment & Plan 51 yo female with presumed diabetes/htn as cause of her ESRD presented with hg of 6 and critical K/Creat ESRD -had 06/14, 06/15 > likely to need 06/16 d/t HTN and again possibly on 06/17 depending on status -now states she wishes to go to [facility]; defer to to arrange outpt dialysis at unit of pt preference -txplt referral placed last week anemia of esrd and chronic dz -transfuse prn -hold off on epo until risks/benefits can be discussed in detail; many clinical transitions going on currently and want to keep pt feeling up to date/ in control -daily hgb HTN remains uncontrolled labetalol upped; on nifedipine & prn hydralazine -will resume outpt bumex and consider hd am FABIOLA -binders Appreciate c/s; will follow w/ you
--- NOTE | 2016-06-15 13:45 | Progress Note ---
Medicine Progress Note Date & Time of Visit: Jun 15, 2016 at 13:34. Subjective Pt was seen and examined Lying in bed comfortable with no distress Pt had her first HD today Pt said that it went well she denies any chest pain, palpitation, dizziness and SOB Objective Last 8 Hrs Date Time Temp Pulse Resp B/P Pulse Ox O2 Delivery O2 Flow Rate FiO2 06/15/16 13:00 80 19 06/15/16 12:59 77 16 176/82 06/15/16 12:54 36.8 80 22 182/96 97 Nasal Cannula 2.0 06/15/16 12:30 77 16 06/15/16 12:28 77 28 173/81 06/15/16 12:00 Nasal Cannula 2.0 06/15/16 12:00 76 18 06/15/16 10:15 Nasal Cannula 2.0 06/15/16 10:15 37.0 83 18 193/86 95 Room Air 06/15/16 09:30 37.0 75 146/75 06/15/16 09:15 70 151/75 06/15/16 09:00 70 143/74 06/15/16 08:45 79 187/90 06/15/16 08:30 77 186/88 06/15/16 08:15 80 192/92 06/15/16 08:00 77 176/76 06/15/16 07:45 77 175/95 06/15/16 07:30 76 184/87 06/15/16 07:15 76 179/87 06/15/16 07:00 73 176/82 06/15/16 06:45 75 169/83 06/15/16 06:30 76 175/85 06/15/16 06:20 76 172/90 06/15/16 06:00 36.6 74 177/90 Physical Exam: General- very pleasant, no acute distress Head- atraumatic Eyes- PERRL, EOMI ENT- oropharynx clear Neck- supple, no JVD Lungs- clear to auscultation and percussion, no wheezing Heart- regular rhythm; no murmur Abdomen- normal bowel sounds, soft, mild tender with deep palpation across the lower abdominal Extremities- no pretibial edema, no calf tenderness Neuro- alert, oriented x 3; PERRL, EOMI Skin- warm & dry Laboratory Results: Last 24 Hours Test 06/14/16 16:30 16/17 16:33 06/14/16 20:25 06/15/16 03:26 Bedside Glucose 153 mg/dl 175 mg/dl 107 mg/dl Hepatitis B Surface Antigen NEG Test 06/15/16 10:01 06/15/16 11:08 06/15/16 11:30 Bedside Glucose 146 mg/dl 182 mg/dl White Blood Count 5.89 K/uL Red Blood Count 3.31 M/uL Hemoglobin 9.0 g/dL Hematocrit 26.5 % Mean Corpuscular Volume 80.1 fL Mean Corpuscular Hemoglobin 27.2 pg Mean Corpuscular Hemoglobin Concent 34.0 g/dl RDW Standard Deviation 40.2 fL RDW Coefficient of Variation 13.9 % Platelet Count 169 K/uL Mean Platelet Volume 9.2 fL Sodium Level 141 mmol/L Potassium Level 3.7 mmol/L Chloride Level 106 mmol/L Carbon Dioxide Level 24 mmol/L Anion Gap 11.0 mmol/L Blood Urea Nitrogen 31 mg/dl Creatinine 4.80 mg/dl Est Creatinine Clear Calc Drug Dose 15.0 ml/min Estimated GFR () 11.3 Estimated GFR (Non- 9.7 BUN/Creatinine Ratio 6.5 Random Glucose 192 mg/dl Calcium Level 7.8 mg/dl Assessment & Plan Symptomatic Anemia Mostly related to Anemia of chronic disease Hgb of 6.0 on admission clinically patient felt weak and short of breath Recieved additional 2 units pRBCs (06/13/16) total 4 unit during this admission Hgb today 9 continue monitor h/h and transfuse if h/h below 8 GI was consult and deferred and scope at this time until her renal status stable She was scheduled for outpatient colonoscopy on 06/19 She will call to reschedule it since she is in the hospital CKD stage V creatine up to 11.0 on admission with elevated anion gap Vascular consulted She had a second opinion from [place] [facility] that recommended her that she needs to start HD Perm cath inserted yesterday Pt had her first HD today that went well, no fluid was removed case discussed with Student Specialist Dr. Castano Possible HD again tomorrow continue sodium bicarb, phoslo, nephrocaps, and calcitriol Avoid nephrotoxic agent Insulin Dependent DM2 Control continue Lantus sliding scale insulin HbA1c 5.8 (06/13/16) HTN Uncontrolled Nifedipine increase, Bumex restarted hydralazine was adding prn Continue monitor BP Elevated troponin Mostly related to CKD and low hgb denies any chest pain EKG did not show any significant ST changes stable DVT ppx -->SCDs FULL CODE Current Inpatient Medications: Current Inpatient Medications Medications (Trade) Dose Ordered Sig/Ben Route Start Time Stop Time Status Last Admin Dose Admin Magnesium Hydroxide (Milk Of Magnesia Susp) 30 ml Q12H PRN PO 06/13/16 04:45 07/13/16 04:44 Insulin Aspart (novoLOG ASPART) SLIDING SCALE If C... ACHS SC 06/13/16 07:00 07/13/16 06:59 06/13/16 18:01 4 UNITS Glucose (Glucose 40% Gel) 15-30 GRAMS 15 GRAMS... UD PRN PO 06/13/16 04:45 07/13/16 04:44 Glucose (Glucose Chew Tab) 4-8 Tablets 4 Tabl... UD PRN PO 06/13/16 04:45 07/13/16 04:44 Dextrose (Dextrose 50% 50ML Syringe) 25-50ML OF 50% DW IV FOR... UD PRN IV 06/13/16 04:45 07/13/16 04:44 Glucagon (Glucagon Inj) 1 mg UD PRN SQ 06/13/16 04:45 07/13/16 04:44 Atorvastatin Calcium (Lipitor Tab) 40 mg HS PO 06/13/16 21:00 07/13/16 20:59 06/14/16 20:42 40 MG Calcitriol (Rocaltrol Cap) 0.25 mcg Q48H PO 06/13/16 09:00 07/13/16 08:59 06/15/16 10:17 0.25 MCG Calcium Acetate (Phoslo Cap) 667 mg TIDM PO 06/13/16 08:00 07/13/16 07:59 06/15/16 13:00 667 MG Insulin Glargine (Lantus Solostar Pen) 4 unit Q12 SC 06/13/16 09:00 07/13/16 08:59 06/15/16 10:22 4 UNIT Labetalol HCl (Normodyne Tab) 400 mg BID PO 06/13/16 06:30 07/13/16 06:29 06/15/16 10:16 400 MG Sodium Bicarbonate (Sodium Bicarbonate Tab) 650 mg BID PO 06/13/16 09:00 07/13/16 08:59 06/15/16 10:17 650 MG Vitamin B Complex/ Vit C/Folic Acid (Nephrocaps) 1 cap DAILY PO 06/13/16 09:00 07/13/16 08:59 06/15/16 10:16 1 CAP Ferrous Sulfate (Feosol Tab) 325 mg BID PO 06/13/16 09:00 07/13/16 08:59 06/15/16 10:24 325 MG Nifedipine (Procardia Xl Tab) 90 mg DAILY PO 06/13/16 09:00 07/13/16 08:59 06/15/16 10:17 90 MG Pantoprazole Sodium (Protonix Tab) 40 mg BID PO 06/14/16 09:00 07/14/16 08:59 06/15/16 10:18 40 MG Acetaminophen (Tylenol Tab) 650 mg Q6H PRN PO 06/14/16 15:15 07/14/16 15:14 06/15/16 13:28 650 MG Hydralazine HCl (HydrALAZINE INJ) 10 mg Q6 PRN IV. 06/15/16 07:45 07/15/16 07:44 06/15/16 11:11 10 MG Bumetanide (Bumex Tab) 2 mg [id number] PO 06/16/16 07:00 07/16/16 06:59
[2016-06-15] MEDS: ATORVASTATIN 40 MG TAB PO SCH (19:55)
[2016-06-16] VITALS (20 sets, daily range): BP systolic 133–198; BP diastolic 61–93; PULSE 74–86; TEMP 36.6–37.3; O2SAT 92–99
[2016-06-16 06:27] LABS: HEMATOCRIT 28.5 % (37-47); MEAN CELL VOLUME 83.6 fL (80-100); MEAN CORPUSCULAR HEMOGLOBIN 27.9 pg (25-34); MEAN CORPUSCULAR HGB CONC 33.3 g/dl (32-36); MEAN PLATELET VOLUME 9.6 fL (7.4-10.4); PLATELET COUNT 210 K/uL (130-400); RED BLOOD COUNT 3.41 M/uL (4.2-5.4); WHITE BLOOD COUNT 6.02 K/uL (4.8-10.8)
[2016-06-16] MEDS: INSULIN ASPART 100 UNITS/ML 3 ML PEN SC SCH ×4 (07:00→21:00)
[2016-06-16 07:04] LABS: BUN/CREATININE RATIO 7.1 (10-20); CALCIUM 8.1 mg/dl (8.5-10.1); CREATININE 5.7 mg/dl (0.60-1.20); POTASSIUM 4.1 mmol/L (3.5-5.1)
[2016-06-16] MEDS: BUMETANIDE 1 MG TAB PO SCH ×2 (08:08→14:16)
[2016-06-16] MEDS: CALCIUM ACETATE 667MG GELCAP PO SCH ×3 (08:08→16:45)
[2016-06-16] MEDS: NEPHROCAPS PO SCH (08:09)
[2016-06-16] MEDS: FERROUS SULFATE 325 MG TAB PO SCH ×2 (08:09→21:00)
[2016-06-16] MEDS: LABETALOL HCL 200 MG TAB PO SCH ×2 (08:10→21:01)
[2016-06-16] MEDS: NIFEdipine 30 MG CR TAB PO SCH (08:10)
[2016-06-16] MEDS: SODIUM BICARBONATE 650 MG TAB PO SCH ×2 (08:11→21:01)
[2016-06-16] MEDS: PANTOprazole SOD 40 MG TAB PO SCH ×2 (08:11→21:01)
[2016-06-16] MEDS: INSULIN GLARGINE SOLOSTAR 100 UNITS/ML 3 ML PEN SC SCH ×2 (08:46→21:05)
[2016-06-16] MEDS: HEPARIN SOD (PORCINE) 1000 UNIT/ML 10 ML VIAL IV SCH ×9 (09:15→17:15)
[2016-06-16] MEDS ORDERED: HEPARIN SOD (PORCINE) 1000 UNIT/ML 10 ML VIAL IV SCH (09:15)
--- NOTE | 2016-06-16 12:59 | Progress Note ---
Medicine Progress Note Date & Time of Visit: Jun 16, 2016 at 12:53. Subjective Pt was seen and examined Lying in bed comfortable with no distress she having lunch now Pt said that she feels fine. she denies any chest pain, palpitation, dizziness and SOB Objective Last 8 Hrs Date Time Temp Pulse Resp B/P Pulse Ox O2 Delivery O2 Flow Rate FiO2 06/16/16 12:06 36.9 76 22 133/61 97 Nasal Cannula 2.0 06/16/16 08:24 37.0 79 14 198/93 95 Nasal Cannula 2.0 Physical Exam: General- very pleasant, no acute distress Head- atraumatic Eyes- PERRL, EOMI ENT- oropharynx clear Neck- supple, no JVD Lungs- clear to auscultation and percussion, no wheezing Heart- regular rhythm; no murmur Abdomen- normal bowel sounds, soft, mild tender with deep palpation across the lower abdominal Extremities- no pretibial edema, no calf tenderness Neuro- alert, oriented x 3; PERRL, EOMI Skin- warm & dry, mild tenderness in the chest wall at the incision area, healing well with no drainage. Laboratory Results: Last 24 Hours Test 06/15/16 16:23 06/15/16 20:47 06/16/16 05:45 06/16/16 06:28 Bedside Glucose 109 mg/dl 127 mg/dl 130 mg/dl White Blood Count 6.02 K/uL Red Blood Count 3.41 M/uL Hemoglobin 9.5 g/dL Hematocrit 28.5 % Mean Corpuscular Volume 83.6 fL Mean Corpuscular Hemoglobin 27.9 pg Mean Corpuscular Hemoglobin Concent 33.3 g/dl RDW Standard Deviation 42.4 fL RDW Coefficient of Variation 14.0 % Platelet Count 210 K/uL Mean Platelet Volume 9.6 fL Sodium Level 142 mmol/L Potassium Level 4.1 mmol/L Chloride Level 109 mmol/L Carbon Dioxide Level 23 mmol/L Anion Gap 10.0 mmol/L Blood Urea Nitrogen 41 mg/dl Creatinine 5.70 mg/dl Est Creatinine Clear Calc Drug Dose 12.7 ml/min Estimated GFR () 9.1 Estimated GFR (Non- 7.9 BUN/Creatinine Ratio 7.1 Random Glucose 140 mg/dl Calcium Level 8.1 mg/dl Test 06/16/16 11:04 Bedside Glucose 155 mg/dl Assessment & Plan Symptomatic Anemia Mostly related to Anemia of chronic disease Hgb of 6.0 on admission clinically patient felt weak and short of breath Recieved additional 2 units pRBCs (06/13/16) total 4 unit during this admission Hgb today 9.5 continue monitor h/h and transfuse if h/h below 8 GI was consult and deferred and scope at this time until her renal status stable She was scheduled for outpatient colonoscopy on 06/19 She will call to reschedule it since she is in the hospital Stable CKD stage V creatine up to 11.0 on admission with elevated anion gap Vascular consulted She had a second opinion from [place] [facility] that recommended her that she needs to start HD Perm cath inserted yesterday Pt had her first HD on 06/15/16 that went well, no fluid was removed case discussed with Email Marketing Intern Dr. Castano yesterday She will dialyze again today continue sodium bicarb, phoslo, nephrocaps, and calcitriol Avoid nephrotoxic agent Insulin Dependent DM2 Control continue Lantus sliding scale insulin HbA1c 5.8 (06/13/16) HTN Control Nifedipine increase, Bumex restarted hydralazine was adding prn Continue monitor BP Elevated troponin Mostly related to CKD and low hgb denies any chest pain EKG did not show any significant ST changes stable DVT ppx -->SCDs FULL CODE Current Inpatient Medications: Current Inpatient Medications Medications (Trade) Dose Ordered Sig/Ben Route Start Time Stop Time Status Last Admin Dose Admin Magnesium Hydroxide (Milk Of Magnesia Susp) 30 ml Q12H PRN PO 06/13/16 04:45 07/13/16 04:44 Insulin Aspart (novoLOG ASPART) SLIDING SCALE If C... ACHS SC 06/13/16 07:00 07/13/16 06:59 06/13/16 18:01 4 UNITS Glucose (Glucose 40% Gel) 15-30 GRAMS 15 GRAMS... UD PRN PO 06/13/16 04:45 07/13/16 04:44 Glucose (Glucose Chew Tab) 4-8 Tablets 4 Tabl... UD PRN PO 06/13/16 04:45 07/13/16 04:44 Dextrose (Dextrose 50% 50ML Syringe) 25-50ML OF 50% DW IV FOR... UD PRN IV 06/13/16 04:45 07/13/16 04:44 Glucagon (Glucagon Inj) 1 mg UD PRN SQ 06/13/16 04:45 07/13/16 04:44 Atorvastatin Calcium (Lipitor Tab) 40 mg HS PO 06/13/16 21:00 07/13/16 20:59 06/15/16 19:55 40 MG Calcitriol (Rocaltrol Cap) 0.25 mcg Q48H PO 06/13/16 09:00 07/13/16 08:59 06/15/16 10:17 0.25 MCG Calcium Acetate (Phoslo Cap) 667 mg TIDM PO 06/13/16 08:00 07/13/16 07:59 06/16/16 08:08 667 MG Insulin Glargine (Lantus Solostar Pen) 4 unit Q12 SC 06/13/16 09:00 07/13/16 08:59 06/16/16 08:46 4 UNIT Labetalol HCl (Normodyne Tab) 400 mg BID PO 06/13/16 06:30 07/13/16 06:29 06/16/16 08:10 400 MG Sodium Bicarbonate (Sodium Bicarbonate Tab) 650 mg BID PO 06/13/16 09:00 07/13/16 08:59 06/16/16 08:11 650 MG Vitamin B Complex/ Vit C/Folic Acid (Nephrocaps) 1 cap DAILY PO 06/13/16 09:00 07/13/16 08:59 06/16/16 08:09 1 CAP Ferrous Sulfate (Feosol Tab) 325 mg BID PO 06/13/16 09:00 07/13/16 08:59 06/16/16 08:09 325 MG Nifedipine (Procardia Xl Tab) 90 mg DAILY PO 06/13/16 09:00 07/13/16 08:59 06/16/16 08:10 90 MG Pantoprazole Sodium (Protonix Tab) 40 mg BID PO 06/14/16 09:00 07/14/16 08:59 06/16/16 08:11 40 MG Acetaminophen (Tylenol Tab) 650 mg Q6H PRN PO 06/14/16 15:15 07/14/16 15:14 06/15/16 19:54 650 MG Hydralazine HCl (HydrALAZINE INJ) 10 mg Q6 PRN IV. 06/15/16 07:45 07/15/16 07:44 06/15/16 11:11 10 MG Bumetanide (Bumex Tab) 2 mg [id number] PO 06/16/16 07:00 07/16/16 06:59 06/16/16 08:08 2 MG Heparin Sodium (Porcine) (Heparin Iv Bolus) 1,000 unit ONE IV 06/16/16 09:15 06/16/16 18:00 Heparin Sodium (Porcine) (Heparin Iv Bolus) 400 unit Q1H IV 06/16/16 09:15 06/16/16 18:00 Heparin Sodium (Porcine) (Heparin Iv Bolus) 1,000 unit ONE IV 06/17/16 08:00 06/17/16 08:01 Heparin Sodium (Porcine) (Heparin Iv Bolus) 400 unit Q1H IV 06/17/16 08:00 06/17/16 10:01
--- NOTE | 2016-06-16 16:06 | Dialysis Progress Note ---
Nephrology Dialysis Note Date of Service: Jun 16, 2016. Subjective seen on HD today d/t HTN; no n/v/MANCIA/sob; some pain over TDC site still; no bleeding; fatigue improved; eating well Objective Date Time Temp Pulse Resp B/P Pulse Ox O2 Delivery O2 Flow Rate FiO2 06/16/16 12:06 36.9 76 22 133/61 97 Nasal Cannula 2.0 06/16/16 12:00 Nasal Cannula 2.0 06/16/16 08:24 37.0 79 14 198/93 95 Nasal Cannula 2.0 06/16/16 04:00 36.8 81 18 154/67 99 Nasal Cannula 2.0 06/16/16 04:00 Nasal Cannula 2.0 06/16/16 00:00 36.6 81 17 160/74 94 Nasal Cannula 2.0 06/16/16 00:00 Nasal Cannula 2.0 06/15/16 20:01 36.7 82 18 165/76 94 2.0 06/15/16 20:00 Nasal Cannula 2.0 06/15/16 16:00 Nasal Cannula 2.0 06/15/16 15:53 36.9 77 18 161/84 98 2.0 Physical Exam: General-A& 0 x 3 on 02nc Eyes-eomi ENT-mmm Neck-supple Lungs-ctab, TDC R chest Heart-rrr Abdomen-soft nt +bs Extremities-no c/c Neuro-hauser, fluent speech, appears to have good insight Current Inpatient Medications Medications (Trade) Dose Ordered Sig/Ben Route Start Time Stop Time Status Last Admin Dose Admin Magnesium Hydroxide (Milk Of Magnesia Susp) 30 ml Q12H PRN PO 06/13/16 04:45 07/13/16 04:44 Insulin Aspart (novoLOG ASPART) SLIDING SCALE If C... ACHS SC 06/13/16 07:00 07/13/16 06:59 06/13/16 18:01 4 UNITS Glucose (Glucose 40% Gel) 15-30 GRAMS 15 GRAMS... UD PRN PO 06/13/16 04:45 07/13/16 04:44 Glucose (Glucose Chew Tab) 4-8 Tablets 4 Tabl... UD PRN PO 06/13/16 04:45 07/13/16 04:44 Dextrose (Dextrose 50% 50ML Syringe) 25-50ML OF 50% DW IV FOR... UD PRN IV 06/13/16 04:45 07/13/16 04:44 Glucagon (Glucagon Inj) 1 mg UD PRN SQ 06/13/16 04:45 07/13/16 04:44 Atorvastatin Calcium (Lipitor Tab) 40 mg HS PO 06/13/16 21:00 07/13/16 20:59 06/15/16 19:55 40 MG Calcitriol (Rocaltrol Cap) 0.25 mcg Q48H PO 06/13/16 09:00 07/13/16 08:59 06/15/16 10:17 0.25 MCG Calcium Acetate (Phoslo Cap) 667 mg TIDM PO 06/13/16 08:00 07/13/16 07:59 06/16/16 14:16 667 MG Insulin Glargine (Lantus Solostar Pen) 4 unit Q12 SC 06/13/16 09:00 07/13/16 08:59 06/16/16 08:46 4 UNIT Labetalol HCl (Normodyne Tab) 400 mg BID PO 06/13/16 06:30 07/13/16 06:29 06/16/16 08:10 400 MG Sodium Bicarbonate (Sodium Bicarbonate Tab) 650 mg BID PO 06/13/16 09:00 07/13/16 08:59 06/16/16 08:11 650 MG Vitamin B Complex/ Vit C/Folic Acid (Nephrocaps) 1 cap DAILY PO 06/13/16 09:00 07/13/16 08:59 06/16/16 08:09 1 CAP Ferrous Sulfate (Feosol Tab) 325 mg BID PO 06/13/16 09:00 07/13/16 08:59 06/16/16 08:09 325 MG Nifedipine (Procardia Xl Tab) 90 mg DAILY PO 06/13/16 09:00 07/13/16 08:59 06/16/16 08:10 90 MG Pantoprazole Sodium (Protonix Tab) 40 mg BID PO 06/14/16 09:00 07/14/16 08:59 06/16/16 08:11 40 MG Acetaminophen (Tylenol Tab) 650 mg Q6H PRN PO 06/14/16 15:15 07/14/16 15:14 06/15/16 19:54 650 MG Hydralazine HCl (HydrALAZINE INJ) 10 mg Q6 PRN IV. 06/15/16 07:45 07/15/16 07:44 06/15/16 11:11 10 MG Bumetanide (Bumex Tab) 2 mg [id number] PO 06/16/16 07:00 07/16/16 06:59 06/16/16 14:16 2 MG Heparin Sodium (Porcine) (Heparin Iv Bolus) 1,000 unit ONE IV 06/16/16 09:15 06/16/16 18:00 Heparin Sodium (Porcine) (Heparin Iv Bolus) 400 unit Q1H IV 06/16/16 09:15 06/16/16 18:00 Heparin Sodium (Porcine) (Heparin Iv Bolus) 1,000 unit ONE IV 06/17/16 08:00 06/17/16 08:01 Heparin Sodium (Porcine) (Heparin Iv Bolus) 400 unit Q1H IV 06/17/16 08:00 06/17/16 10:01 Last 24 Hours Test 06/15/16 16:23 06/15/16 20:47 06/16/16 05:45 06/16/16 06:28 Bedside Glucose 109 mg/dl 127 mg/dl 130 mg/dl White Blood Count 6.02 K/uL Red Blood Count 3.41 M/uL Hemoglobin 9.5 g/dL Hematocrit 28.5 % Mean Corpuscular Volume 83.6 fL Mean Corpuscular Hemoglobin 27.9 pg Mean Corpuscular Hemoglobin Concent 33.3 g/dl RDW Standard Deviation 42.4 fL RDW Coefficient of Variation 14.0 % Platelet Count 210 K/uL Mean Platelet Volume 9.6 fL Sodium Level 142 mmol/L Potassium Level 4.1 mmol/L Chloride Level 109 mmol/L Carbon Dioxide Level 23 mmol/L Anion Gap 10.0 mmol/L Blood Urea Nitrogen 41 mg/dl Creatinine 5.70 mg/dl Est Creatinine Clear Calc Drug Dose 12.7 ml/min Estimated GFR () 9.1 Estimated GFR (Non- 7.9 BUN/Creatinine Ratio 7.1 Random Glucose 140 mg/dl Calcium Level 8.1 mg/dl Test 06/16/16 11:04 Bedside Glucose 155 mg/dl Assessment & Plan 51 yo female with presumed diabetes/htn as cause of her ESRD presented with hg of 6 and critical K/Creat ESRD -had 06/14, 06/15, 06/16 > likely to need 06/17 then as indicated through week as outpt -now states she wishes to go to [facility]; defer to SW to arrange outpt dialysis at unit of pt preference -txplt referral placed last week anemia of esrd and chronic dz -transfuse prn >> hgb 10 today -hold off on epo until risks/benefits can be discussed in detail> I did introduce these concepts to her today; many clinical transitions going on currently and want to keep pt feeling up to date/ in control -daily hgb -she has colonoscopy scheduled outpt 06/19 > may need to reschedule this depending on outpt HD schedule HTN remains uncontrolled labetalol upped; on nifedipine & prn hydralazine & standing bumex -HD today FABIOLA -binders Appreciate c/s; will follow w/ you. care coordinated w/ dr obrien
[2016-06-16] MEDS: ATORVASTATIN 40 MG TAB PO SCH (21:01)
[2016-06-17] VITALS (25 sets, daily range): BP systolic 145–197; BP diastolic 72–103; PULSE 54–81; TEMP 36.6–37.3; O2SAT 95–100
[2016-06-17] MEDS: INSULIN ASPART 100 UNITS/ML 3 ML PEN SC SCH ×4 (07:00→21:00)
[2016-06-17] MEDS: FERROUS SULFATE 325 MG TAB PO SCH ×2 (07:28→21:50)
[2016-06-17] MEDS: CALCIUM ACETATE 667MG GELCAP PO SCH ×3 (07:28→17:14)
[2016-06-17] MEDS: PANTOprazole SOD 40 MG TAB PO SCH ×2 (07:28→21:48)
[2016-06-17] MEDS: NIFEdipine 30 MG CR TAB PO SCH (07:28)
[2016-06-17] MEDS: BUMETANIDE 1 MG TAB PO SCH ×2 (07:28→13:14)
[2016-06-17] MEDS: CALCITRIOL 0.25 MCG CAP PO SCH (07:28)
[2016-06-17] MEDS: NEPHROCAPS PO SCH (07:28)
[2016-06-17] MEDS: LABETALOL HCL 200 MG TAB PO SCH ×2 (07:28→21:51)
[2016-06-17] MEDS: SODIUM BICARBONATE 650 MG TAB PO SCH ×2 (07:29→21:49)
--- NOTE | 2016-06-17 07:43 | Nephrology Progress Note ---
Nephrology Progress Note Date of Service: Jun 17, 2016. Subjective tolerated HD well yesterday; still no n/v/MANCIA/sob; no bleeding; fatigue continues to improve; slept and eating well Objective Date Time Temp Pulse Resp B/P Pulse Ox O2 Delivery O2 Flow Rate FiO2 06/17/16 04:43 36.8 81 16 179/99 95 Room Air 06/17/16 04:00 Room Air 06/17/16 00:00 Room Air 06/16/16 23:57 37.3 86 18 167/75 96 Room Air 06/16/16 20:00 Room Air 06/16/16 19:32 37.0 80 16 160/88 92 Room Air 06/16/16 18:13 94 Room Air 06/16/16 17:45 Nasal Cannula 2.0 06/16/16 17:26 36.8 82 177/82 06/16/16 17:15 80 173/78 06/16/16 17:00 79 168/80 06/16/16 16:45 79 169/80 06/16/16 16:30 78 173/79 06/16/16 16:15 75 160/73 06/16/16 16:00 75 155/75 06/16/16 15:45 76 146/67 06/16/16 15:30 74 137/70 06/16/16 15:15 74 151/69 06/16/16 15:00 76 152/73 06/16/16 14:53 76 145/69 06/16/16 14:43 36.8 76 150/77 06/16/16 12:06 36.9 76 22 133/61 97 Nasal Cannula 2.0 06/16/16 12:00 Nasal Cannula 2.0 06/16/16 08:24 37.0 79 14 198/93 95 Nasal Cannula 2.0 Physical Exam: General-A& 0 x 3 lying flat now on RA Eyes-eomi ENT-mmm Neck-supple Lungs-ctab, TDC R chest Heart-rrr Abdomen-soft nt +bs Extremities-no c/c, no edema Neuro-hauser, fluent speech, appears to have good insight most times Current Inpatient Medications Medications (Trade) Dose Ordered Sig/Ben Route Start Time Stop Time Status Last Admin Dose Admin Magnesium Hydroxide (Milk Of Magnesia Susp) 30 ml Q12H PRN PO 06/13/16 04:45 2/4/17 04:44 Insulin Aspart (novoLOG ASPART) SLIDING SCALE If C... ACHS SC 06/13/16 07:00 07/13/16 06:59 06/13/16 18:01 4 UNITS Glucose (Glucose 40% Gel) 15-30 GRAMS 15 GRAMS... UD PRN PO 06/13/16 04:45 07/13/16 04:44 Glucose (Glucose Chew Tab) 4-8 Tablets 4 Tabl... UD PRN PO 06/13/16 04:45 07/13/16 04:44 Dextrose (Dextrose 50% 50ML Syringe) 25-50ML OF 50% DW IV FOR... UD PRN IV 06/13/16 04:45 07/13/16 04:44 Glucagon (Glucagon Inj) 1 mg UD PRN SQ 06/13/16 04:45 07/13/16 04:44 Atorvastatin Calcium (Lipitor Tab) 40 mg HS PO 06/13/16 21:00 07/13/16 20:59 06/16/16 21:01 40 MG Calcitriol (Rocaltrol Cap) 0.25 mcg Q48H PO 06/13/16 09:00 07/13/16 08:59 06/15/16 10:17 0.25 MCG Calcium Acetate (Phoslo Cap) 667 mg TIDM PO 06/13/16 08:00 07/13/16 07:59 06/16/16 16:45 667 MG Insulin Glargine (Lantus Solostar Pen) 4 unit Q12 SC 06/13/16 09:00 07/13/16 08:59 06/16/16 21:05 4 UNIT Labetalol HCl (Normodyne Tab) 400 mg BID PO 06/13/16 06:30 07/13/16 06:29 06/16/16 21:01 400 MG Sodium Bicarbonate (Sodium Bicarbonate Tab) 650 mg BID PO 06/13/16 09:00 07/13/16 08:59 06/16/16 21:01 650 MG Vitamin B Complex/ Vit C/Folic Acid (Nephrocaps) 1 cap DAILY PO 06/13/16 09:00 07/13/16 08:59 06/16/16 08:09 1 CAP Ferrous Sulfate (Feosol Tab) 325 mg BID PO 06/13/16 09:00 07/13/16 08:59 06/16/16 21:00 325 MG Nifedipine (Procardia Xl Tab) 90 mg DAILY PO 06/13/16 09:00 07/13/16 08:59 06/16/16 08:10 90 MG Pantoprazole Sodium (Protonix Tab) 40 mg BID PO 06/14/16 09:00 07/14/16 08:59 06/16/16 21:01 40 MG Acetaminophen (Tylenol Tab) 650 mg Q6H PRN PO 06/14/16 15:15 07/14/16 15:14 06/15/16 19:54 650 MG Hydralazine HCl (HydrALAZINE INJ) 10 mg Q6 PRN IV. 06/15/16 07:45 07/15/16 07:44 06/15/16 11:11 10 MG Bumetanide (Bumex Tab) 2 mg [id number] PO 06/16/16 07:00 07/16/16 06:59 06/16/16 14:16 2 MG Heparin Sodium (Porcine) (Heparin Iv Bolus) 1,000 unit ONE IV 06/17/16 08:00 06/17/16 08:01 Heparin Sodium (Porcine) (Heparin Iv Bolus) 400 unit Q1H IV 06/17/16 08:00 06/17/16 10:01 Last 24 Hours Test 06/16/16 11:04 06/16/16 17:39 06/16/16 20:32 Bedside Glucose 155 mg/dl 110 mg/dl 172 mg/dl Assessment & Plan 51 yo female with presumed diabetes/htn as cause of her ESRD presented with hg of 6 and critical K/Creat > ESRD ESRD -had 06/14, 06/15, 06/16; will again have 06/17 > then as indicated through week as outpt >> will need 2 more txs this week -now states she wishes to go to [facility] and not [facility] where application already made; defer to to arrange outpt dialysis at unit of pt preference -txplt referral placed last week anemia of esrd and chronic dz -transfuse prn >> hgb 10 today -hold off on epo until risks/benefits can be discussed in detail> I did introduce these concepts to her today; many clinical transitions going on currently and want to keep pt feeling up to date/ in control -daily hgb ->>>>she has colonoscopy scheduled outpt 06/19 > likely will need to reschedule this depending on outpt HD schedule HTN remains uncontrolled but improving and now no longer on labetalol upped; on nifedipine & prn hydralazine & standing bumex -HD today FABIOLA -binders should be cont at d/c Appreciate c/s; will follow w/ you.
[2016-06-17] MEDS: INSULIN GLARGINE SOLOSTAR 100 UNITS/ML 3 ML PEN SC SCH ×2 (07:56→21:52)
[2016-06-17] MEDS: HEPARIN SOD (PORCINE) 1000 UNIT/ML 10 ML VIAL IV SCH ×2 (08:00→09:00)
[2016-06-17] MEDS ORDERED: HEPARIN SOD (PORCINE) 1000 UNIT/ML 10 ML VIAL IV SCH (08:00)
[2016-06-17 15:04] LABS: HEMATOCRIT 31.2 % (37-47); MEAN CELL VOLUME 81.7 fL (80-100); MEAN CORPUSCULAR HEMOGLOBIN 27.5 pg (25-34); MEAN CORPUSCULAR HGB CONC 33.7 g/dl (32-36); MEAN PLATELET VOLUME 9.6 fL (7.4-10.4); PLATELET COUNT 244 K/uL (130-400); RED BLOOD COUNT 3.82 M/uL (4.2-5.4); WHITE BLOOD COUNT 6.02 K/uL (4.8-10.8)
[2016-06-17 15:35] LABS: BUN/CREATININE RATIO 4.6 (10-20); CALCIUM 7.6 mg/dl (8.5-10.1); POTASSIUM 3.1 mmol/L (3.5-5.1)
[2016-06-17 15:36] LABS: CREATININE 2.8 mg/dl (0.60-1.20)
[2016-06-17 16:46] LABS: URINE APPEARANCE CLEAR (CLEAR); URINE BILIRUBIN NEG (NEG); URINE COLOR YELLOW; URINE EPITHELIAL CELL AUTO >30 /lpf (0-5); URINE NITRITE NEG (NEG); URINE PH 8.5 (4.5-7.5); URINE SPECIFIC GRAVITY 1.007 (1.000-1.030); UROBILINOGEN NEG (NEG); ZZUR CULT IF INDIC CLEAN CATCH NO
[2016-06-17 16:48] LABS: MANUAL MICROSCOPIC REQUIRED? NO; REVIEW REQ? NO
[2016-06-17 16:49] LABS: SULFASALICYLIC ACID POS (NEG)
[2016-06-17] MEDS ORDERED: POTASSIUM CHLORIDE 20 MEQ TABCR PO ONE (19:45)
--- NOTE | 2016-06-17 19:52 | Progress Note ---
Medicine Progress Note Date & Time of Visit: Jun 17, 2016 at 19:42. Subjective Pt was seen and examined Lying in bed comfortable with no distress Tolerated HD very well denies any chest pain, palpitation, dizziness and SOB Objective Last 8 Hrs Date Time Temp Pulse Resp B/P Pulse Ox O2 Delivery O2 Flow Rate FiO2 06/17/16 19:22 37.2 75 16 161/75 96 06/17/16 16:23 95 Room Air 06/17/16 15:41 36.6 74 18 152/72 96 06/17/16 12:55 95 Room Air 06/17/16 12:37 36.7 71 161/80 06/17/16 12:00 73 161/76 06/17/16 11:45 75 157/78 Physical Exam: General- very pleasant, no acute distress Head- atraumatic Eyes- PERRL, EOMI ENT- oropharynx clear Neck- supple, no JVD Lungs- clear to auscultation and percussion, no wheezing Heart- regular rhythm; no murmur Abdomen- normal bowel sounds, soft, mild tender with deep palpation across the lower abdominal Extremities- no pretibial edema, no calf tenderness Neuro- alert, oriented x 3; PERRL, EOMI Skin- warm & dry, mild tenderness in the chest wall at the incision area, healing well with no drainage. Laboratory Results: Last 24 Hours Test 06/16/16 20:32 06/17/16 10:48 06/17/16 13:20 06/17/16 14:34 Bedside Glucose 172 mg/dl 118 mg/dl 101 mg/dl White Blood Count 6.02 K/uL Red Blood Count 3.82 M/uL Hemoglobin 10.5 g/dL Hematocrit 31.2 % Mean Corpuscular Volume 81.7 fL Mean Corpuscular Hemoglobin 27.5 pg Mean Corpuscular Hemoglobin Concent 33.7 g/dl RDW Standard Deviation 41.4 fL RDW Coefficient of Variation 13.7 % Platelet Count 244 K/uL Mean Platelet Volume 9.6 fL Sodium Level 141 mmol/L Potassium Level 3.1 mmol/L Chloride Level 100 mmol/L Carbon Dioxide Level 32 mmol/L Anion Gap 9.0 mmol/L Blood Urea Nitrogen 13 mg/dl Creatinine 2.80 mg/dl Est Creatinine Clear Calc Drug Dose 25.7 ml/min Estimated GFR () 21.6 Estimated GFR (Non- 18.6 BUN/Creatinine Ratio 4.6 Random Glucose 103 mg/dl Calcium Level 7.6 mg/dl Test 06/17/16 16:19 06/17/16 16:20 Bedside Glucose 187 mg/dl Urine Color YELLOW Urine Appearance CLEAR Urine pH 8.5 Urine Specific [place] 1.007 Urine Protein 1+ Urine Glucose (UA) TRACE Urine Ketones NEG Urine Occult Blood 1+ Urine Nitrite NEG Urine Bilirubin NEG Urine Urobilinogen NEG Urine Leukocyte Esterase NEG Urine WBC (Auto) 1-5 /hpf Urine RBC (Auto) 10-30 /hpf Urine Hyaline Casts (Auto) 1-5 /lpf Urine Epithelial Cells (Auto) >30 /lpf Urine Bacteria (Auto) NEG Stool Occult Blood NEGATIVE Assessment & Plan Symptomatic Anemia Mostly related to Anemia of chronic disease Hgb of 6.0 on admission clinically patient felt weak and short of breath Recieved additional 2 units pRBCs (06/13/16) total 4 unit during this admission Hgb today 10.5 continue monitor h/h and transfuse if h/h below 8 GI was consult and deferred and scope at this time until her renal status stable She was scheduled for outpatient colonoscopy on 06/19 She will call to reschedule it since she is in the hospital Stable CKD stage V creatine up to 11.0 on admission with elevated anion gap Vascular consulted She had a second opinion from [facility] that recommended her that she needs to start HD Perm cath inserted yesterday Pt had her first HD on 06/14, 06/15, 06/16/ that went well She had dialyze again today continue sodium bicarb, phoslo, nephrocaps, and calcitriol Waiting for approval from dialysis center before she can be discharged Avoid nephrotoxic agent Insulin Dependent DM2 Control continue Lantus sliding scale insulin HbA1c 5.8 (06/13/16) HTN Uncontrol Nifedipine increase, Bumex, labetalol hydralazine was adding prn Continue monitor BP Elevated troponin Mostly related to CKD and low hgb denies any chest pain EKG did not show any significant ST changes stable DVT ppx -->SCDs FULL CODE Disposition Follow up appt with PCP Dr. Craig on 06/21 at 10:10 am Waiting for dialysis center approval before discharge Current Inpatient Medications: Current Inpatient Medications Medications (Trade) Dose Ordered Sig/Ben Route Start Time Stop Time Status Last Admin Dose Admin Magnesium Hydroxide (Milk Of Magnesia Susp) 30 ml Q12H PRN PO 06/13/16 04:45 07/13/16 04:44 Insulin Aspart (novoLOG ASPART) SLIDING SCALE If C... ACHS SC 06/13/16 07:00 07/13/16 06:59 06/13/16 18:01 4 UNITS Glucose (Glucose 40% Gel) 15-30 GRAMS 15 GRAMS... UD PRN PO 06/13/16 04:45 07/13/16 04:44 Glucose (Glucose Chew Tab) 4-8 Tablets 4 Tabl... UD PRN PO 06/13/16 04:45 07/13/16 04:44 Dextrose (Dextrose 50% 50ML Syringe) 25-50ML OF 50% DW IV FOR... UD PRN IV 06/13/16 04:45 07/13/16 04:44 Glucagon (Glucagon Inj) 1 mg UD PRN SQ 06/13/16 04:45 07/13/16 04:44 Atorvastatin Calcium (Lipitor Tab) 40 mg HS PO 06/13/16 21:00 07/13/16 20:59 06/16/16 21:01 40 MG Calcitriol (Rocaltrol Cap) 0.25 mcg Q48H PO 06/13/16 09:00 07/13/16 08:59 06/17/16 07:28 0.25 MCG Calcium Acetate (Phoslo Cap) 667 mg TIDM PO 06/13/16 08:00 07/13/16 07:59 06/17/16 17:14 667 MG Insulin Glargine (Lantus Solostar Pen) 4 unit Q12 SC 06/13/16 09:00 07/13/16 08:59 06/17/16 07:56 4 UNIT Labetalol HCl (Normodyne Tab) 400 mg BID PO 06/13/16 06:30 07/13/16 06:29 06/17/16 07:28 400 MG Sodium Bicarbonate (Sodium Bicarbonate Tab) 650 mg BID PO 06/13/16 09:00 07/13/16 08:59 06/17/16 07:29 650 MG Vitamin B Complex/ Vit C/Folic Acid (Nephrocaps) 1 cap DAILY PO 06/13/16 09:00 07/13/16 08:59 06/17/16 07:28 1 CAP Ferrous Sulfate (Feosol Tab) 325 mg BID PO 06/13/16 09:00 07/13/16 08:59 06/17/16 07:28 325 MG Nifedipine (Procardia Xl Tab) 90 mg DAILY PO 06/13/16 09:00 07/13/16 08:59 06/17/16 07:28 90 MG Pantoprazole Sodium (Protonix Tab) 40 mg BID PO 06/14/16 09:00 07/14/16 08:59 06/17/16 07:28 40 MG Acetaminophen (Tylenol Tab) 650 mg Q6H PRN PO 06/14/16 15:15 07/14/16 15:14 06/15/16 19:54 650 MG Hydralazine HCl (HydrALAZINE INJ) 10 mg Q6 PRN IV. 06/15/16 07:45 07/15/16 07:44 06/15/16 11:11 10 MG Bumetanide (Bumex Tab) 2 mg [id number] PO 06/16/16 07:00 07/16/16 06:59 06/17/16 13:14 2 MG
[2016-06-17] MEDS: ATORVASTATIN 40 MG TAB PO SCH (21:50)
[2016-06-17] MEDS ORDERED: POTASSIUM CHLORIDE 10 MEQ TABCR PO STA (23:54)
[2016-06-18] MEDS: ACETAMINOPHEN 325 MG TAB PO PRN (03:34)
[2016-06-18 04:00] VITALS: BP 192/78; PULSE 79; TEMP 36.9; O2SAT 98
[2016-06-18] MEDS: HydrALAZINE HCL 20 MG/ML VIAL IV. PRN (04:32)
[2016-06-18 05:03] VITALS: BP 175/76; PULSE 75
[2016-06-18 06:29] LABS: HEMATOCRIT 29.8 % (37-47); MEAN CELL VOLUME 82.1 fL (80-100); MEAN CORPUSCULAR HEMOGLOBIN 27.5 pg (25-34); MEAN CORPUSCULAR HGB CONC 33.6 g/dl (32-36); MEAN PLATELET VOLUME 9.7 fL (7.4-10.4); PLATELET COUNT 237 K/uL (130-400); RED BLOOD COUNT 3.63 M/uL (4.2-5.4)
[2016-06-18 07:22] LABS: BUN/CREATININE RATIO 5.7 (10-20); CALCIUM 7.8 mg/dl (8.5-10.1); CREATININE 4.6 mg/dl (0.60-1.20); PHOSPHORUS 2.2 mg/dl (2.5-4.9); POTASSIUM 3.8 mmol/L (3.5-5.1)
[2016-06-18 07:35] VITALS: BP 172/73; PULSE 77; TEMP 36.9; O2SAT 97
[2016-06-18] MEDS: INSULIN ASPART 100 UNITS/ML 3 ML PEN SC SCH ×3 (07:50→17:14)
--- NOTE | 2016-06-18 08:08 | DIAGNOSTIC IMAGING REPORT ---
DATE OF PROCEDURE: 06/14/2016 PREOPERATIVE DIAGNOSIS: Acute renal failure. POSTOPERATIVE DIAGNOSIS: Same. PROCEDURE: 1. Insertion of right internal jugular vein PermCath. 2. Fluoroscopic imaging for positioning. 3. Ultrasound localization of right internal jugular vein. 4. Moderate conscious sedation. SURGEON: Dr. García. ANESTHETIC: Local with moderate conscious sedation. PROCEDURE INDICATIONS: The patient is a 51-year-old female with acute renal failure in need of dialysis. PermCath was recommended. She understood the risks, options and benefits and agreed to have this procedure. The patient was taken to the angio suite and placed in the supine position. After right side of the neck and chest wall were prepped and draped in a sterile manner, local anesthetic was administered. Percutaneous puncture was made of the right internal jugular vein. This was done after ultrasound imaging was performed, it showed the internal jugular vein to be patent with good caliber and compressing easily. The puncture was made under direct ultrasound guidance. Once the needle entered the vein, a wire was passed centrally. Under fluoro, the wire was passed down into the inferior vena cava from above. A stab wound was then made in the anterior chest wall and 19 cm PermCath was inserted through the stab wound in the chest wall and brought out through the puncture site in the neck. The puncture site was then dilated until the 14-[place] Peel-Away sheath was inserted. Once the sheath was inserted, the PermCath was inserted through the Peel-Away sheath. The sheath was removed. The catheter tip was in the distal superior vena cava. Catheter sat with a nice curve with no kinking. Both ports aspirated and flushed very easily. They were then flushed and then instilled with heparin. Catheter was sutured to the anterior chest wall using nylon sutures. The puncture site was closed with interrupted 4-0 Vicryl subcuticular suture and Dermabond for a dressing. Sterile dressings were then applied to the PermCath exit site. The patient left the angio suite in good condition and tolerated the procedure well.
[2016-06-18] MEDS: BUMETANIDE 1 MG TAB PO SCH ×2 (08:50→14:00)
[2016-06-18] MEDS: CALCIUM ACETATE 667MG GELCAP PO SCH ×3 (08:51→17:14)
[2016-06-18] MEDS: FERROUS SULFATE 325 MG TAB PO SCH (08:51)
[2016-06-18] MEDS: LABETALOL HCL 200 MG TAB PO SCH (08:51)
[2016-06-18] MEDS: NIFEdipine 30 MG CR TAB PO SCH (08:51)
[2016-06-18] MEDS: NEPHROCAPS PO SCH (08:51)
[2016-06-18] MEDS: PANTOprazole SOD 40 MG TAB PO SCH (08:51)
[2016-06-18] MEDS: SODIUM BICARBONATE 650 MG TAB PO SCH (08:51)
[2016-06-18] MEDS: INSULIN GLARGINE SOLOSTAR 100 UNITS/ML 3 ML PEN SC SCH (08:56)
[2016-06-18 14:00] VITALS: BP_SYST 122; BP_SYST 125; BP_DIAS 61; BP_DIAS 63; PULSE 77
[2016-06-18 14:41] VITALS: BP 172/73; PULSE 77; TEMP 36.9; O2SAT 97
--- NOTE | 2016-06-18 15:33 | Progress Note ---
Medicine Progress Note Date & Time of Visit: Jun 18, 2016 at 15:18. Subjective Pt was seen and examined Lying in bed comfortable with no discharge pt said that she feels fine She denies any chest pain, palpitation dizziness and SOB Pt is schedule for HD tomorrow at [place] [facility] voucher was provided by case management Objective Last 8 Hrs Date Time Temp Pulse Resp B/P Pulse Ox O2 Delivery O2 Flow Rate FiO2 06/18/16 14:41 36.9 77 18 97 Room Air 06/18/16 12:30 Room Air 06/18/16 07:40 Room Air 06/18/16 07:35 36.9 77 18 172/73 97 Room Air Physical Exam: General- very pleasant, no acute distress Head- atraumatic Eyes- PERRL, EOMI ENT- oropharynx clear Neck- supple, no JVD Lungs- clear to auscultation and percussion, no wheezing Heart- regular rhythm; no murmur Abdomen- normal bowel sounds, soft, mild tender with deep palpation across the lower abdominal Extremities- no pretibial edema, no calf tenderness Neuro- alert, oriented x 3; PERRL, EOMI Skin- warm & dry, mild tenderness in the chest wall at the incision area, healing well with no drainage. Laboratory Results: Last 24 Hours Test 06/17/16 16:19 06/17/16 16:20 06/17/16 20:15 06/18/16 05:44 Bedside Glucose 187 mg/dl 166 mg/dl Urine Color YELLOW Urine Appearance CLEAR Urine pH 8.5 Urine Specific [place] 1.007 Urine Protein 1+ Urine Glucose (UA) TRACE Urine Ketones NEG Urine Occult Blood 1+ Urine Nitrite NEG Urine Bilirubin NEG Urine Urobilinogen NEG Urine Leukocyte Esterase NEG Urine WBC (Auto) 1-5 /hpf Urine RBC (Auto) 10-30 /hpf Urine Hyaline Casts (Auto) 1-5 /lpf Urine Epithelial Cells (Auto) >30 /lpf Urine Bacteria (Auto) NEG Stool Occult Blood NEGATIVE White Blood Count 6.90 K/uL Red Blood Count 3.63 M/uL Hemoglobin 10.0 g/dL Hematocrit 29.8 % Mean Corpuscular Volume 82.1 fL Mean Corpuscular Hemoglobin 27.5 pg Mean Corpuscular Hemoglobin Concent 33.6 g/dl RDW Standard Deviation 41.0 fL RDW Coefficient of Variation 13.4 % Platelet Count 237 K/uL Mean Platelet Volume 9.7 fL Sodium Level 139 mmol/L Potassium Level 3.8 mmol/L Chloride Level 101 mmol/L Carbon Dioxide Level 30 mmol/L Anion Gap 8.0 mmol/L Blood Urea Nitrogen 26 mg/dl Creatinine 4.60 mg/dl Est Creatinine Clear Calc Drug Dose 15.4 ml/min Estimated GFR () 11.9 Estimated GFR (Non- 10.2 BUN/Creatinine Ratio 5.7 Random Glucose 103 mg/dl Calcium Level 7.8 mg/dl Phosphorus Level 2.2 mg/dl Test 06/18/16 07:20 06/18/16 11:58 Bedside Glucose 89 mg/dl 157 mg/dl Assessment & Plan Symptomatic Anemia Mostly related to Anemia of chronic disease Hgb of 6.0 on admission clinically patient felt weak and short of breath Recieved additional 2 units pRBCs (06/13/16) total 4 unit during this admission Hgb today 10.o continue monitor h/h and transfuse if h/h below 8 GI was consult and deferred and scope at this time until her renal status stable She was scheduled for outpatient colonoscopy on 06/19 She will call to reschedule it since she is in the hospital Fecal occult was negative Stable CKD stage V creatine up to 11.0 on admission with elevated anion gap Vascular consulted She had a second opinion from [facility] that recommended her that she needs to start HD Perm cath inserted yesterday Pt had her first HD on 06/14, 06/15, 06/16/ that went well She had dialyze again today continue sodium bicarb, phoslo, nephrocaps, and calcitriol She is schedule for HD tomorrow at 2 pm at [place] [facility] voucher was provided by case management to go to dialysis Avoid nephrotoxic agent Insulin Dependent DM2 Control continue Lantus sliding scale insulin HbA1c 5.8 (06/13/16) HTN Uncontrol Nifedipine increase, Bumex, labetalol hydralazine was adding prn Continue monitor BP advised pt to follow a low salt diet Elevated troponin Mostly related to CKD and low hgb denies any chest pain EKG did not show any significant ST changes stable DVT ppx -->SCDs FULL CODE Disposition Follow up appt with PCP Dr. Craig on 06/21 at 10:10 am Next HD is scheduled tomorrow (Friday) at 2 PM at [facility] in [place] [facility] voucher was given to use for dialysis tomorrow Consultants: Nephrology Vascular surgery Procedures: Insertion Of Perm Catheter, Right Internal Jugular Approach, Ultrasound Localization Of Right Internal Jugular Vein, Fluoroscopy For Positioning Current Inpatient Medications: Current Inpatient Medications Medications (Trade) Dose Ordered Sig/Ben Route Start Time Stop Time Status Last Admin Dose Admin Magnesium Hydroxide (Milk Of Magnesia Susp) 30 ml Q12H PRN PO 06/13/16 04:45 07/13/16 04:44 Insulin Aspart (novoLOG ASPART) SLIDING SCALE If C... ACHS SC 06/13/16 07:00 07/13/16 06:59 06/13/16 18:01 4 UNITS Glucose (Glucose 40% Gel) 15-30 GRAMS 15 GRAMS... UD PRN PO 06/13/16 04:45 07/13/16 04:44 Glucose (Glucose Chew Tab) 4-8 Tablets 4 Tabl... UD PRN PO 06/13/16 04:45 07/13/16 04:44 Dextrose (Dextrose 50% 50ML Syringe) 25-50ML OF 50% DW IV FOR... UD PRN IV 06/13/16 04:45 07/13/16 04:44 Glucagon (Glucagon Inj) 1 mg UD PRN SQ 06/13/16 04:45 07/13/16 04:44 Atorvastatin Calcium (Lipitor Tab) 40 mg HS PO 06/13/16 21:00 07/13/16 20:59 06/17/16 21:50 40 MG Calcitriol (Rocaltrol Cap) 0.25 mcg Q48H PO 06/13/16 09:00 07/13/16 08:59 06/17/16 07:28 0.25 MCG Calcium Acetate (Phoslo Cap) 667 mg TIDM PO 06/13/16 08:00 07/13/16 07:59 06/18/16 12:37 667 MG Insulin Glargine (Lantus Solostar Pen) 4 unit Q12 SC 06/13/16 09:00 07/13/16 08:59 06/18/16 08:56 4 UNIT Labetalol HCl (Normodyne Tab) 400 mg BID PO 06/13/16 06:30 07/13/16 06:29 1/10/17 08:51 400 MG Sodium Bicarbonate (Sodium Bicarbonate Tab) 650 mg BID PO 06/13/16 09:00 07/13/16 08:59 06/18/16 08:51 650 MG Vitamin B Complex/ Vit C/Folic Acid (Nephrocaps) 1 cap DAILY PO 06/13/16 09:00 07/13/16 08:59 06/18/16 08:51 1 CAP Ferrous Sulfate (Feosol Tab) 325 mg BID PO 06/13/16 09:00 07/13/16 08:59 06/18/16 08:51 325 MG Nifedipine (Procardia Xl Tab) 90 mg DAILY PO 06/13/16 09:00 07/13/16 08:59 06/18/16 08:51 90 MG Pantoprazole Sodium (Protonix Tab) 40 mg BID PO 06/14/16 09:00 07/14/16 08:59 06/18/16 08:51 40 MG Acetaminophen (Tylenol Tab) 650 mg Q6H PRN PO 06/14/16 15:15 07/14/16 15:14 06/18/16 03:34 650 MG Hydralazine HCl (HydrALAZINE INJ) 10 mg Q6 PRN IV. 06/15/16 07:45 07/15/16 07:44 06/18/16 04:32 10 MG Bumetanide (Bumex Tab) 2 mg [id number] PO 06/16/16 07:00 07/16/16 06:59 06/18/16 14:00 2 MG
--- NOTE | 2016-06-18 15:47 | Discharge Instructions ---
Discharge Instructions Admission Reason for Admission: Anemia, Ersd Discharge Discharge Diagnosis / Problem: ESRD on HD, Anemia, Hypertension, Elevated troponin Discharge Goals Goal(s): Decrease discomfort, Improve function, Improve disease control Activity Recommendations Activity Limitations: resume your previous activity (as tolerated) . Instructions / Follow-Up Instructions / Follow-Up Follow up appointment with your primary care physician Dr. Craig on 06/21 at 10:10 am Next HD is scheduled tomorrow (Friday) at 2 PM at [facility] Advised Patient not to miss any dialysis day because it can cause electrolytes problems and fluid overload Follow up with gastro for outpatient colonoscopy Keep perm Catheter area clean Avoid nephrotoxic agents Monitor hemoglobin level Current Hospital Diet Patient's current hospital diet: Renal Diet, Diabetes Type 2 Diet Discharge Diet Recommended Diet: Diabetes Type 2 Diet, Renal Diet Procedures Procedures Performed: Insertion Of Perm Catheter, Right Internal Jugular Approach, Ultrasound Localization Of Right Internal Jugular Vein, Fluoroscopy For Positioning, Moderate Concious Sedation 1115 to 1146 Pending Studies Studies pending at discharge: no Laboratory Results Hemoglobin A1c Test 06/13/16 03:00 Range/Units Estimated Average Glucose 120 mg/dl Hemoglobin A1c 5.8 H 4.5-5.6 % Medical Emergencies . Who to Call and When: Medical Emergencies: If at any time you feel your situation is an emergency, please call 911 immediately. . Non-Emergent Contact Non-Emergency issues call your: Primary Care Provider Call Non-Emergent contact if: you have a fever, wound has increased drainage, wound has increased redness, wound has increased pain, you have any medication questions . . "Provider Documentation" section prepared by Loretta Belle. VTE Core Measure Inpt VTE Proph given/why not?: SCD's (Low hemoglobin)
--- NOTE | 2016-06-21 00:03 | Discharge Summary ---
Discharge Summary Admission Date: Jun 13, 2016 at 04:49 Discharge Date: Jun 18, 2016 Discharge Disposition: Home Principal Diagnosis: anemia elevated creatine Secondary Diagnoses/Problems: ESRD on HD Anemia Hypertension Elevated troponin Procedures: Insertion Of Perm Catheter, Right Internal Jugular Approach, Ultrasound Localization Of Right Internal Jugular Vein, Fluoroscopy For Positioning Consultations: Nephrology Vascular surgery Medication Reconciliation Continued Medications: Albuterol Hfa (Ventolin Hfa) 200 Puffs/59615 Mcg Aers 2 PUFFS INH Q4 PRN for WHEEZE/SOB/COUGH/CHEST TIGHT, #1 INHALER AND PRIOR TO EXERCISE Aspirin (Aspirin 81) 81 Mg Tab 81 MG PO DAILY Atorvastatin (Lipitor) 40 Mg Tab 40 MG PO HS, TAB Bumetanide (Bumex) 2 Mg Tab 2 MG PO BID, TAB Calcitriol (Rocaltrol Cap) 0.25 Mcg Cap 0.25 MCG PO Q2D, CAP Calcium Acetate (Phoslo 667 Mg) 667 Mg Cap 1 CAP PO TIDM, CAP Cetirizine (Zyrtec) 10 Mg Tab 10 MG PO DAILY, TAB Diphenhydramine Hcl (Benadryl Allergy) 25 Mg Cap 25 MG PO Q4-6 PRN for UNDECIDED Epinephrine (Epipen) 0.3 Mg/0.3 Ml Inj 0.3 MG IM UD PRN for ALLERGIC REACTION Ferrous Sulfate (Ferrous Sulfate) 325 Mg Tab 325 MG PO BID Insulin Glargine (Lantus) 100 Unit/Ml Inj 4 UNITS SC Q12, VIAL Labetalol (Normodyne) 200 Mg Tab 400 MG PO BID, TAB Nifedipine (Procardia Xl) 90 Mg Tab 90 MG PO DAILY, TAB Sodium Bicarbonate (Sodium Bicarbonate) 650 Mg Tab 650 MG PO BID Vitamin B Cmplx/Vitc/Folic Ac (Nephrocaps) Cap 1 CAP PO DAILY, 3 Refills Admission Information HPI (per Admitting provider): This is a 51 year old female with PMH of insulin dependent DM2, CKD stage V, anemia of chronic kidney disease, HTN presents after being told to come to the ER with lab results of elevated creatinine; these lab results were found on ; multiple attempts to contact patient; patient states that she finally listened to her voicemail today telling her to come to the ER. She states that last night she developed some worsening shortness of breath - was going to wait until today until she could see her PCP, but breathing worsened so she came to the ER - upon presentation, she was found to be very anemic with a Hgb of 6.0 - creat was up to 11.0. She does not have an AV fistula or tunneled catheter in place. Denies chest pain. Takes her medication as prescribed. As per patient, she is still producing urine daily. Physical Exam (per Admitting): General Appearance: no apparent distress Head: normocephalic, atraumatic Eyes: normal inspection ENT: hearing grossly normal Neck: supple Respiratory/Chest: lungs clear, normal breath sounds, no respiratory distress, no accessory muscle use Cardiovascular: regular rate, rhythm, no murmur Abdomen/GI: normal bowel sounds, non tender, soft Back: no CVA tenderness, no muscle spasm Extremities/Musculoskelatal: + pertinent finding (trace edema b/l LE) Neurologic/Psych: no motor/sensory deficits, alert, normal mood/affect Skin: normal color Lymphatic: no adenopathy Hospital Course Symptomatic Anemia Mostly related to Anemia of chronic disease Hgb of 6.0 on admission clinically patient felt weak and short of breath Recieved additional 2 units pRBCs (06/13/16) total 4 unit during this admission Hgb today 10.o continue monitor h/h and transfuse if h/h below 8 GI was consult and deferred and scope at this time until her renal status stable She was scheduled for outpatient colonoscopy on 06/19 She will call to reschedule it since she is in the hospital Fecal occult was negative Stable CKD stage V creatine up to 11.0 on admission with elevated anion gap Vascular consulted She had a second opinion from [place] [facility] that recommended her that she needs to start HD Perm cath inserted yesterday Pt had her first HD on 06/14, 06/15, 06/16/ that went well She had dialyze again today continue sodium bicarb, phoslo, nephrocaps, and calcitriol She is schedule for HD tomorrow at 2 pm at [facility] voucher was provided by case management to go to dialysis Avoid nephrotoxic agent Insulin Dependent DM2 Control continue Lantus sliding scale insulin HbA1c 5.8 (06/13/16) HTN Uncontrol Nifedipine increase, Bumex, labetalol hydralazine was adding prn Continue monitor BP advised pt to follow a low salt diet Elevated troponin Mostly related to CKD and low hgb denies any chest pain EKG did not show any significant ST changes stable DVT ppx -->SCDs FULL CODE Disposition Follow up appt with PCP Dr. Craig on 06/21 at 10:10 am Next HD is scheduled tomorrow (Friday) at 2 PM at [facility] voucher was given to use for dialysis tomorrow Total time spent on discharge = 35 minutes This includes examination of the patient, discharge planning, medication reconciliation, and communication with other providers. Discharge Instructions Discharge Instructions Admission Reason for Admission: Anemia, Ersd Discharge Discharge Diagnosis / Problem: ESRD on HD, Anemia, Hypertension, Elevated troponin Discharge Goals Goal(s): Decrease discomfort, Improve function, Improve disease control Activity Recommendations Activity Limitations: resume your previous activity (as tolerated) . Instructions / Follow-Up Instructions / Follow-Up Follow up appointment with your primary care physician Dr. Craig on 06/21 at 10:10 am Next HD is scheduled tomorrow (Friday) at 2 PM at [facility] Advised Patient not to miss any dialysis day because it can cause electrolytes problems and fluid overload Follow up with gastro for outpatient colonoscopy Keep perm Catheter area clean Avoid nephrotoxic agents Monitor hemoglobin level Current Hospital Diet Patient's current hospital diet: Renal Diet, Diabetes Type 2 Diet Discharge Diet Recommended Diet: Diabetes Type 2 Diet, Renal Diet Procedures Procedures Performed: Insertion Of Perm Catheter, Right Internal Jugular Approach, Ultrasound Localization Of Right Internal Jugular Vein, Fluoroscopy For Positioning, Moderate Concious Sedation 1115 to 1146 Pending Studies Studies pending at discharge: no Laboratory Results Hemoglobin A1c Test 06/13/16 03:00 Range/Units Estimated Average Glucose 120 mg/dl Hemoglobin A1c 5.8 H 4.5-5.6 % Medical Emergencies . Who to Call and When: Medical Emergencies: If at any time you feel your situation is an emergency, please call 911 immediately. . Non-Emergent Contact Non-Emergency issues call your: Primary Care Provider Call Non-Emergent contact if: you have a fever, wound has increased drainage, wound has increased redness, wound has increased pain, you have any medication questions . . "Provider Documentation" section prepared by Loretta Belle. VTE Core Measure Inpt VTE Proph given/why not?: SCD's (Low hemoglobin) Additional Copies To Osbaldo Craig MD
== END 2016-06-18 18:35 | disposition home or self-care (01) | DRG 811 ==
LOC: ENRESERVTM → ENRESERVDT → C.EDB 02:52 → EDBD 02:52 → C.EDINP 04:49 → C.2E 15:48 → C.MED 06-17 22:56
PROVIDERS: ADMIT Family Medicine; ATTEND Internal Medicine
PROC: 02HV33Z Insertion of Infusion Device into Superior Vena Cava, Percutaneous Approach (ICD-10-PCS; principal; 2016-06-14 13:00)
DX: D63.1 Anemia in chronic kidney disease (principal); N18.6 End stage renal disease; N17.9 Acute kidney failure, unspecified; E87.2 Acidosis; K92.1 Melena; I12.0 Hypertensive chronic kidney disease with stage 5 chronic kidney disease or end stage renal disease; E11.21 Type 2 diabetes mellitus with diabetic nephropathy; E11.319 Type 2 diabetes mellitus with unspecified diabetic retinopathy without macular edema; Z79.82 Long term (current) use of aspirin; Z88.0 Allergy status to penicillin; Z87.891 Personal history of nicotine dependence; Z79.4 Long term (current) use of insulin; E11.40 Type 2 diabetes mellitus with diabetic neuropathy, unspecified; Z86.73 Personal history of transient ischemic attack (TIA), and cerebral infarction without residual deficits; Z84.2 Family history of other diseases of the genitourinary system

== ENCOUNTER 2016-06-23 18:50 | Emergency (ER) | payer OTHER ==
[~2016-06-23] VITALS: Ht 170.2 cm; Wt 74.4 kg
[~2016-06-23 18:50] MED LIST: ASPI-435 PO; ATOR-24 PO; B-CO1CAP17 PO; BUME2TAB3 PO; CALC0.2510 PO; CALC667C4 PO; CETI10TA84 PO; DIPH25CA65 PO; EPP3/2 IM; FERR325T PO; INSDGI SC; LABE1TAB28 PO; NIFE90TA PO; SODI650T8 PO; VNTHFA/IN INH
[2016-06-23 18:54] VITALS: TEMP 37; Ht 170.2 cm; Wt 74.4 kg
--- NOTE | 2016-06-23 19:33 | DIAGNOSTIC IMAGING REPORT ---
SINGLE VIEW CHEST CLINICAL HISTORY: Status post catheter placement. FINDINGS: An AP, portable, upright chest radiograph is compared to study dated 06/13/2016. A right internal jugular central venous catheter has been placed. The tip of the catheter projects over the confluence of the innominate veins. The heart is enlarged. The pulmonary vasculature is noncongested. The lungs and pleural spaces are clear. No pneumothorax is seen. The bony thorax is grossly intact. IMPRESSION: 1. A right internal jugular central venous catheter has been placed as detailed above. No pneumothorax is seen post procedure. 2. Cardiomegaly without radiographic evidence of congestive failure. 3. No airspace consolidation or pleural effusion is identified. Electronically signed by: Eric Beaver M.D. 06/23/2016 7:32 PM Dictated Date/Time: 06/23/2016 7:30 PM
[2016-06-23 20:08] LABS: BASO % 1.5 %; COMPLETE YES; EOS % 3.5 %; HEMATOCRIT 28.6 % (37-47); IG% 0.1 %; LYMPH % 23.1 %; LYMPH ABS # 1.59 K/uL (1.2-3.4); MEAN CELL VOLUME 82.9 fL (80-100); MEAN CORPUSCULAR HEMOGLOBIN 27.2 pg (25-34); MEAN CORPUSCULAR HGB CONC 32.9 g/dl (32-36); MEAN PLATELET VOLUME 8.6 fL (7.4-10.4); MONO % 4.8 %; PLATELET COUNT 272 K/uL (130-400); RED BLOOD COUNT 3.45 M/uL (4.2-5.4); WHITE BLOOD COUNT 6.88 K/uL (4.8-10.8)
[2016-06-23 20:23] LABS: INR 1.1 (0.9-1.1); PROTHROMBIN TIME (PATIENT) 11.5 SECONDS (9.0-12.0)
[2016-06-23 20:36] LABS: CALCIUM 8.7 mg/dl (8.5-10.1); POTASSIUM 4.3 mmol/L (3.5-5.1)
[2016-06-23 20:37] LABS: CREATININE 6.3 mg/dl (0.60-1.20)
[2016-06-23 21:18] VITALS: BP 150/69; PULSE 75; O2SAT 98
--- NOTE | 2016-06-23 22:13 | EMERGENCY ROOM VISIT NOTE ---
History Report prepared by Cyrus: Lindsey Storey Under the Supervision of: Dr. Pb Baptiste M.D. First contact with patient: 19:09 Chief Complaint: CARDIAC ASSESSMENT Stated Complaint: HEART PALPITATIONS, BLOODY STOOL, SEVERE CONSTIPAT History of Present Illness The patient is a 51 year old female who presents to the Emergency Room for a cardiac assessment. The patient has end stage renal disease and started dialysis earlier this month. She goes to dialysis 3 times per week. She still makes urine and urinates 2-3 times per day. The patient had a dialysis catheter placed in her right neck last week by Dr. Coleman. She reports pain and swelling to the right side of her face and neck. Tonight she experienced chest palpitations. She called the [facility] nurse and was advised to come to the ED for further evaluation. The patient rates her pain as an 8/10. She has a history of DVT. She had a blood transfusion last week because her hemoglobin was low. She denies shortness of breath. Source of History: patient Onset: [employer] Position: chest (cardiac assessment) Symptom Intensity: 8/10 Quality: other (palpitations) Timing: other (episode) Associated Symptoms: + neck pain (and swelling), No SOB Note: Pt reports right sided facial pain and swelling. Review of Systems See HPI for pertinent positives & negatives. A total of 10 systems reviewed and were otherwise negative. Past Medical & Surgical Medical Problems: (1) Anemia (2) ESRD (end stage renal disease) (3) HTN (hypertension) (4) IDDM (insulin dependent diabetes mellitus) Family History No pertinent family history Social History Smoking Status: Never Smoker Housing Status: lives with family Current/Historical Medications Scheduled Aspirin (Aspirin 81), 81 MG PO DAILY Atorvastatin (Lipitor), 40 MG PO HS Bumetanide (Bumex), 2 MG PO BID Calcitriol (Rocaltrol Cap), 0.25 MCG PO Q2D Calcium Acetate (Phoslo 667 Mg), 1 CAP PO TIDM Cetirizine (Zyrtec), 10 MG PO DAILY Ferrous Sulfate (Ferrous Sulfate), 325 MG PO BID Insulin Glargine (Lantus), 4 UNITS SC Q12 Labetalol (Normodyne), 400 MG PO BID Nifedipine (Procardia Xl), 90 MG PO DAILY Sodium Bicarbonate (Sodium Bicarbonate), 650 MG PO BID Vitamin B Cmplx/Vitc/Folic Ac (Nephrocaps), 1 CAP PO DAILY Scheduled PRN Albuterol Hfa (Ventolin Hfa), 2 PUFFS INH Q4 PRN for WHEEZE/SOB/COUGH/CHEST TIGHT Diphenhydramine Hcl (Benadryl Allergy), 25 MG PO Q4-6 PRN for UNDECIDED Epinephrine (Epipen), 0.3 MG IM UD PRN for ALLERGIC REACTION Allergies Coded Allergies: Ampicillin (Verified Allergy, Unknown, Unknown, 06/13/16) Animal Dander (Verified Allergy, Unknown, unk, 06/23/16) [place] (Verified Allergy, Unknown, unk, 06/23/16) Molds & Smuts (Verified Allergy, Unknown, unk, 06/23/16) Penicillins (Verified Allergy, Unknown, Unknown, 06/13/16) Physical Exam Vital Signs Date Time Temp Pulse Resp B/P Pulse Ox O2 Delivery O2 Flow Rate FiO2 06/23/16 21:18 75 18 150/69 98 Room Air 06/23/16 19:30 75 06/23/16 18:54 37.0 76 20 112/63 98 Room Air Physical Exam CONSTITUTIONAL: No acute distress. HEENT: No icterus, moist mucous membranes. Catheter in place in right neck, site clean dry intact. NECK: No meningismus, trachea is midline. CARDIOVASCULAR: Regular rate, normal perfusion RESPIRATORY: Unlabored breathing. Clear to auscultation. GASTROINTESTINAL: Non-tender GENITOURINARY: No flank tenderness MUSCULOSKELETAL: Full range of motion NEUROLOGIC: No acute gross focal deficits. PSYCHIATRIC: Normal affect SKIN: Normal for ethnicity. Medical Decision & Procedures ER Provider Diagnostic Interpretation: Radiology results as stated below per my review and radiologist interpretation. SINGLE VIEW CHEST CLINICAL HISTORY: Status post catheter placement. FINDINGS: An AP, portable, upright chest radiograph is compared to study dated 06/13/2016. A right internal jugular central venous catheter has been placed. The tip of the catheter projects over the confluence of the innominate veins. The heart is enlarged. The pulmonary vasculature is noncongested. The lungs and pleural spaces are clear. No pneumothorax is seen. The bony thorax is grossly intact. IMPRESSION: 1. A right internal jugular central venous catheter has been placed as detailed above. No pneumothorax is seen post procedure. 2. Cardiomegaly without radiographic evidence of congestive failure. 3. No airspace consolidation or pleural effusion is identified. Electronically signed by: Eric Beaver M.D. 06/23/2016 7:32 PM Dictated Date/Time: 06/23/2016 7:30 PM Laboratory Results 06/23/16 19:56 Red Blood Count 3.45, Mean Corpuscular Volume 82.9, Mean Corpuscular Hemoglobin 27.2, Mean Corpuscular Hemoglobin Concent 32.9, Mean Platelet Volume 8.6, Neutrophils (%) (Auto) 67.0, Lymphocytes (%) (Auto) 23.1, Monocytes (%) (Auto) 4.8, Eosinophils (%) (Auto) 3.5, Basophils (%) (Auto) 1.5, Neutrophils # (Auto) 4.61, Lymphocytes # (Auto) 1.59, Monocytes # (Auto) 0.33, Eosinophils # (Auto) 0.24, Basophils # (Auto) 0.10 06/23/16 19:56 Test 06/23/16 19:56 White Blood Count 6.88 K/uL (4.8-10.8) Red Blood Count 3.45 M/uL (4.2-5.4) Hemoglobin 9.4 g/dL (12.0-16.0) Hematocrit 28.6 % (37-47) Mean Corpuscular Volume 82.9 fL (80-100) Mean Corpuscular Hemoglobin 27.2 pg (25-34) Mean Corpuscular Hemoglobin Concent 32.9 g/dl (32-36) Platelet Count 272 K/uL (130-400) Mean Platelet Volume 8.6 fL (7.4-10.4) Neutrophils (%) (Auto) 67.0 % Lymphocytes (%) (Auto) 23.1 % Monocytes (%) (Auto) 4.8 % Eosinophils (%) (Auto) 3.5 % Basophils (%) (Auto) 1.5 % Neutrophils # (Auto) 4.61 K/uL (1.4-6.5) Lymphocytes # (Auto) 1.59 K/uL (1.2-3.4) Monocytes # (Auto) 0.33 K/uL (0.11-0.59) Eosinophils # (Auto) 0.24 K/uL (0-0.5) Basophils # (Auto) 0.10 K/uL (0-0.2) RDW Standard Deviation 39.8 fL (36.4-46.3) RDW Coefficient of Variation 13.1 % (11.5-14.5) Immature Granulocyte % (Auto) 0.1 % Immature Granulocyte # (Auto) 0.01 K/uL (0.00-0.02) Prothrombin Time 11.5 SECONDS (9.0-12.0) Prothromb Time International Ratio 1.1 (0.9-1.1) Activated Partial Thromboplast Time 25.1 SECONDS (21.0-31.0) Partial Thromboplastin Ratio 1.0 Anion Gap 10.0 mmol/L (3-11) Est Creatinine Clear Calc Drug Dose 11.0 ml/min Estimated GFR () 8.1 Estimated GFR (Non- 7.0 BUN/Creatinine Ratio 6.0 (10-20) Calcium Level 8.7 mg/dl (8.5-10.1) Labs reviewed by ED physician. ECG Indication: palpitations Rate (beats per minute): 75 Rhythm: normal sinus Findings: no acute ischemic change, no ectopy ED Course 1909: Past medical records reviewed. The patient was evaluated in room B2. A complete history and physical examination was performed. 2020: I spoke with Dr. Coleman at this time regarding the patient's case. He will follow-up with the patient in the office. 2041: I reassessed the patient at this time. She is feeling better and resting comfortably. I discussed the results and treatment plan with the patient. I answered all pertaining questions that she had. She expressed understanding and verbalized agreement. The patient will be discharged home. Medical Decision Differential diagnoses includes postprocedure complications. 51-year-old presents into the emergency room for evaluation of mild right neck swelling and concern over infection status post recent catheter placement for dialysis. She still urinates 2-3 times per day and was recently started on HD . She reports no dysfunctions of the catheter itself and patient denies any fevers chills or other signs of infection at this time. Chest x-ray was negative for pneumothorax. Case discussed with Dr. Coleman who agrees that patient is in satisfactory condition for follow-up at this time. Patient review of systems noted bright red blood with very constipated bowel movement earlier today but that is not the primary reason for her ED presentation. She was advised to discuss this concern with her primary doctor. She also understands to return the emergency room for any worsening swelling of her neck , fevers, warmth, erythema or any worsening rectal bleeding. Patient and I discussed the of a DVT status post line placement and a remote history of DVT in the past. I advised that these concerns to be discussed with the vascular surgeon or her primary doctor and that should anything change we will reassess the situation. Consults Time Called: 2018 Consulting Physician: Dr. Coleman Returned Call: [address] Coleman at this time regarding the patient's case. He will follow-up with the patient in the office. Impression Primary Impression: Post procedure discomfort Additional Impression: S/P dialysis catheter insertion Scribe Attestation The scribe's documentation has been prepared under my direction and personally reviewed by me in its entirety. I confirm that the note above accurately reflects all work, treatment, procedures, and medical decision making performed by me. Departure Information Dispostion Home / Self-Care Referrals Osbaldo Craig MD (PCP) Patient Instructions My [facility] Additional Instructions PLEASE CALL DR. COLEMAN TOMORROW TO ARRANGE FOLLOW-UP. RETURN TO ER FOR WORSENING OR WORRISOME SYMPTOMS. Problem Qualifiers
== END 2016-06-23 21:19 | disposition home or self-care (01) ==
LOC: C.EDB 18:52
DX: G89.18 Other acute postprocedural pain (principal); Z98.890 Other specified postprocedural states; R22.1 Localized swelling, mass and lump, neck; I12.0 Hypertensive chronic kidney disease with stage 5 chronic kidney disease or end stage renal disease; E11.22 Type 2 diabetes mellitus with diabetic chronic kidney disease; N18.6 End stage renal disease; Z99.2 Dependence on renal dialysis; Z79.4 Long term (current) use of insulin; Z79.82 Long term (current) use of aspirin; Z79.899 Other long term (current) drug therapy

== ENCOUNTER 2016-07-11 15:09 | Emergency (ER) | payer OTHER ==
[~2016-07-11] VITALS: Ht 170.2 cm; Wt 75.9 kg
[2016-07-11 15:15] VITALS: TEMP 36.6; Ht 170.2 cm; Wt 75.9 kg
[2016-07-11] MEDS ORDERED: SODIUM CHLORIDE 0.9% 1000ML 1,000 ML IV STA (15:38)
--- NOTE | 2016-07-11 15:59 | EMERGENCY ROOM VISIT NOTE ---
History First contact with patient: 15:27 Chief Complaint: SYNCOPE (NEAR SYNCOPE) Stated Complaint: DIZZY, NAUSEA Nursing Triage Summary: Patient was at [facility] and while standing in line she felt dizzy and felt as though she could pass out. Patient sat on the floor and others got her water to drink and she started to feel better. Recent med changes for hypertension and patient started dialysis 2 weeks ago, last treatment yesterday 07/10/16 History of Present Illness The patient is a 51 year old female who presents to the Emergency Room with complaints of lightheadedness and near syncope. The patient states that she was at [facility] earlier today and began to feel very lightheaded and felt as though she might pass out. The patient drank some water and felt better. She was brought to the emergency department by ambulance. The patient states she is feeling better. She denies any pain. She denies any loss of consciousness. She denies any headache, chest pain, trouble breathing. She denies any abdominal pain, nausea or vomiting. She denies any extremity swelling. The patient has a history of hypertension and recently had her medications increased. The patient does have a history of kidney disease and recently started dialysis. She had her last dialysis yesterday. She does have a dialysis catheter. The patient states that she has felt this way after dialysis in the past. Review of Systems A 10 system review of systems was completed with positives and pertinent negatives listed in the HPI. Past Medical/Surgical History Medical Problems: (1) Anemia (2) ESRD (end stage renal disease) (3) HTN (hypertension) (4) IDDM (insulin dependent diabetes mellitus) Family History No pertinent family history Social History Smoking Status: Never Smoker Housing Status: lives with family Current/Historical Medications Scheduled Aspirin (Aspirin 81), 81 MG PO DAILY Atorvastatin (Lipitor), 40 MG PO HS Bumetanide (Bumex), 2 MG PO BID Calcitriol (Rocaltrol Cap), 0.25 MCG PO Q2D Calcium Acetate (Phoslo 667 Mg), 1 CAP PO TIDM Cetirizine (Zyrtec), 10 MG PO DAILY Insulin Glargine (Lantus), 4 UNITS SC Q12 Labetalol (Normodyne), 400 MG PO BID Multivitamin (Multivitamin), 1 TAB PO DAILY Nifedipine (Procardia Xl), 90 MG PO DAILY Vitamin B Cmplx/Vitc/Folic Ac (Nephrocaps), 1 CAP PO DAILY [Sensipar], 1 TAB PO DAILY Scheduled PRN Albuterol Hfa (Ventolin Hfa), 2 PUFFS INH Q4 PRN for WHEEZE/SOB/COUGH/CHEST TIGHT Diphenhydramine Hcl (Benadryl Allergy), 25 MG PO Q4-6 PRN for UNDECIDED Epinephrine (Epipen), 0.3 MG IM UD PRN for ALLERGIC REACTION Allergies Coded Allergies: Ampicillin (Verified Allergy, Unknown, Unknown, 07/11/16) Animal Dander (Verified Allergy, Unknown, unk, 07/11/16) [place] (Verified Allergy, Unknown, unk, 07/11/16) Molds & Smuts (Verified Allergy, Unknown, unk, 07/11/16) POLLEN (Unverified Allergy, Unknown, UNKNOWN, 07/11/16) Penicillins (Verified Allergy, Unknown, Unknown, 07/11/16) Physical Exam Vital Signs Date Time Temp Pulse Resp B/P Pulse Ox O2 Delivery O2 Flow Rate FiO2 07/11/16 20:19 80 18 160/80 100 Room Air 07/11/16 18:08 76 16 155/77 98 Room Air 07/11/16 16:40 73 16 126/73 97 Room Air 07/11/16 15:50 67 118/57 70 106/55 72 97/53 07/11/16 15:34 70 07/11/16 15:26 Room Air 07/11/16 15:15 36.6 70 16 110/57 99 Room Air Physical Exam VITALS: Vitals are noted on the nurse's note and reviewed by myself. Vital signs stable. The patient is afebrile. GENERAL: This is a 51-year-old female, in no acute distress, nondiaphoretic, well-developed well-nourished. SKIN: The skin was without rashes, erythema, edema, or bruising. There is no tenting of the skin. Capillary reflex less than 2 seconds. HEAD: Normocephalic atraumatic. EARS: External ears are normal in appearance. EYES: Pupils equal round and reactive to light and accommodation. Conjunctivae without injection, sclerae without icterus. Extraocular movements intact. NOSE: Patent, turbinates without inflammation or discharge. MOUTH: Mucous membranes moist. Tonsils are not enlarged. Pharynx without erythema or exudate. Uvula midline. Airway patent. Tongue does not deviate. NECK: Supple without nuchal rigidity. No JVD. HEART: Regular rate and rhythm without murmurs gallops or rubs. LUNGS: Clear to auscultation bilaterally without wheezes, rales or rhonchi. No retractions or accessory muscle use. ABDOMEN: Positive bowel sounds x 4. Soft, nontender, without masses or organomegaly. Lee sign negative. MUSCULOSKELETAL: No muscle atrophy, erythema, or edema noted. Full range of motion in all extremities. Normal gait. Strength 5/5 throughout. NEURO: Patient was alert and oriented to person place and time. No focal neurological deficits. Medical Decision & Procedures ER Provider Diagnostic Interpretation: SINGLE VIEW CHEST CLINICAL HISTORY: Near syncope. FINDINGS: An AP, portable, upright chest radiograph is compared to study dated 06/23/2016. A right internal jugular central venous catheter is unchanged in position. The heart is mildly enlarged. The pulmonary vasculature is noncongested. The lungs and pleural spaces are clear. No pneumothorax is seen. The bony thorax is grossly intact. IMPRESSION: Cardiac enlargement with no acute cardiopulmonary abnormality. Laboratory Results 07/11/16 17:45 Red Blood Count 3.76, Mean Corpuscular Volume 87.8, Mean Corpuscular Hemoglobin 28.2, Mean Corpuscular Hemoglobin Concent 32.1, Mean Platelet Volume 9.1, Neutrophils (%) (Auto) 71.3, Lymphocytes (%) (Auto) 21.5, Monocytes (%) (Auto) 4.8, Eosinophils (%) (Auto) 1.6, Basophils (%) (Auto) 0.8, Neutrophils # (Auto) 5.33, Lymphocytes # (Auto) 1.61, Monocytes # (Auto) 0.36, Eosinophils # (Auto) 0.12, Basophils # (Auto) 0.06 07/11/16 17:45 Test 07/11/16 15:23 07/11/16 17:45 07/11/16 19:05 Bedside Glucose 312 mg/dl (70-90) White Blood Count 7.48 K/uL (4.8-10.8) Red Blood Count 3.76 M/uL (4.2-5.4) Hemoglobin 10.6 g/dL (12.0-16.0) Hematocrit 33.0 % (37-47) Mean Corpuscular Volume 87.8 fL (80-100) Mean Corpuscular Hemoglobin 28.2 pg (25-34) Mean Corpuscular Hemoglobin Concent 32.1 g/dl (32-36) Platelet Count 283 K/uL (130-400) Mean Platelet Volume 9.1 fL (7.4-10.4) Neutrophils (%) (Auto) 71.3 % Lymphocytes (%) (Auto) 21.5 % Monocytes (%) (Auto) 4.8 % Eosinophils (%) (Auto) 1.6 % Basophils (%) (Auto) 0.8 % Neutrophils # (Auto) 5.33 K/uL (1.4-6.5) Lymphocytes # (Auto) 1.61 K/uL (1.2-3.4) Monocytes # (Auto) 0.36 K/uL (0.11-0.59) Eosinophils # (Auto) 0.12 K/uL (0-0.5) Basophils # (Auto) 0.06 K/uL (0-0.2) RDW Standard Deviation 43.3 fL (36.4-46.3) RDW Coefficient of Variation 14.5 % (11.5-14.5) Immature Granulocyte % (Auto) 0.0 % Immature Granulocyte # (Auto) 0.00 K/uL (0.00-0.02) Anion Gap 9.0 mmol/L (3-11) Est Creatinine Clear Calc Drug Dose 12.3 ml/min Estimated GFR () 9.1 Estimated GFR (Non- 7.9 BUN/Creatinine Ratio 4.9 (10-20) Calcium Level 7.7 mg/dl (8.5-10.1) Magnesium Level 2.1 mg/dl (1.8-2.4) Total Bilirubin 0.6 mg/dl (0.2-1) Aspartate Amino Transf (AST/SGOT) 19 U/L (15-37) Alanine Aminotransferase (ALT/SGPT) 27 U/L (12-78) Alkaline Phosphatase 104 U/L (45-117) Troponin I < 0.015 ng/ml (0-0.045) Total Protein 8.0 gm/dl (6.4-8.2) Albumin 3.8 gm/dl (3.4-5.0) Globulin 4.2 gm/dl (2.5-4.0) Albumin/Globulin Ratio 0.9 (0.9-2) Lipase 197 U/L (73-393) Urine Color YELLOW Urine Appearance CLEAR (CLEAR) Urine pH >= 9.0 (4.5-7.5) Urine Specific [place] 1.010 (1.000-1.030) Urine Protein 1+ (NEG) Urine Glucose (UA) NEG (NEG) Urine Ketones NEG (NEG) Urine Occult Blood NEG (NEG) Urine Nitrite NEG (NEG) Urine Bilirubin NEG (NEG) Urine Urobilinogen NEG (NEG) Urine Leukocyte Esterase NEG (NEG) Urine WBC (Auto) 1-5 /hpf (0-5) Urine RBC (Auto) 0-4 /hpf (0-4) Urine Hyaline Casts (Auto) 1-5 /lpf (0-5) Urine Epithelial Cells (Auto) >30 /lpf (0-5) Urine Bacteria (Auto) NEG (NEG) Medications Administered Medications (Trade) Dose Ordered Sig/Ben Route Start Time Stop Time Status Last Admin Dose Admin Sodium Polystyrene Sulfonate (Kayexalate Susp) 30 gm NOW STAT PO 07/11/16 19:28 07/11/16 19:29 DC 07/11/16 19:45 30 GM Procedure The patient was monitored on a cardiac exercise physiologist. They maintained a normal sinus rhythm without ectopy. ECG Indication: syncope Rate (beats per minute): 68 Rhythm: normal sinus Findings: no acute ischemic change Change: T-wave inversion in lateral leads no longer evident ED Course The patient was seen and examined. Previous visits were reviewed. The patient does not have a fever. She does not have a leukocytosis. She has a mild anemia. Her potassium is elevated at 5.8. Creatinine is 5.7 read glucose is 190. Troponin, lipase and urinalysis were negative for acute abnormality. Chest x-ray reveals cardiac enlargement There was some difficulty obtaining an IV and the patient refused but agreed to a straight stick. After multiple attempts, blood work was obtained. In the meantime, the patient was able to drink water. Her blood pressure improved. The patient does have a mild hyperkalemia with potassium 5.8. There are no acute EKG changes. I discussed the case with Dr. Romero who recommends 30 g oral Kayexalate. The patient has dialysis tomorrow. The patient should return to the ER with any worsening symptoms. The case was discussed with Dr. Suárez who agrees with the assessment and treatment plan Medical Decision DIFFERENTIAL DIAGNOSIS: Aortic dissection, myocarditis, pericarditis, cervical disc disease, costochondritis, herpes zoster, rib fracture, pleuritis, pneumonia , pulmonary embolus, tension pneumothorax, anxiety disorder, somatoform disorder , choledocholithiasis, status, esophagitis, esophageal spasm, esophageal reflux , esophageal rupture, pancreatitis, peptic ulcer disease, cardiac ischemia, ST elevation [place], acute coronary syndrome, arrhythmia, coronary artery vasospasm. vavular heart disease, coronary artery disease, among others. Impression Primary Impression: Near syncope Additional Impression: Hyperkalemia Departure Information Dispostion Home / Self-Care Condition GOOD Referrals Osbaldo Craig MD (PCP) OncJaida anderson I., DO Patient Instructions [facility] Additional Instructions Have the dialysis done tomorrow as scheduled Return with any worsening symptoms Contact your family doctor to discuss your blood pressure Problem Qualifiers
[2016-07-11] MEDS ORDERED: SENSIPAR PO (16:02)
[2016-07-11] MEDS ORDERED: B-CO1CAP17 PO (16:02)
[2016-07-11] MEDS ORDERED: MULT-506 PO (16:03)
[2016-07-11 18:16] LABS: BASO % 0.8 %; BASO ABS # 0.06 K/uL (0-0.2); COMPLETE YES; EOS % 1.6 %; LYMPH % 21.5 %; LYMPH ABS # 1.61 K/uL (1.2-3.4); MEAN CELL VOLUME 87.8 fL (80-100); MEAN CORPUSCULAR HEMOGLOBIN 28.2 pg (25-34); MEAN CORPUSCULAR HGB CONC 32.1 g/dl (32-36); MEAN PLATELET VOLUME 9.1 fL (7.4-10.4); MONO % 4.8 %; NEUT % 71.3 %; PLATELET COUNT 283 K/uL (130-400); RED BLOOD COUNT 3.76 M/uL (4.2-5.4); WHITE BLOOD COUNT 7.48 K/uL (4.8-10.8)
[2016-07-11 18:36] LABS: ALB/GLOB RATIO 0.9 (0.9-2); ALKALINE PHOSPHATASE 104 U/L (45-117); ALT/SGPT 27 U/L (12-78); AST/SGOT 19 U/L (15-37); BLOOD UREA NITROGEN 28 mg/dl (7-18); BUN/CREATININE RATIO 4.9 (10-20); CALCIUM 7.7 mg/dl (8.5-10.1); CARBON DIOXIDE 29 mmol/L (21-32); CHLORIDE 99 mmol/L (98-107); GLUCOSE 190 mg/dl (70-99); MAGNESIUM 2.1 mg/dl (1.8-2.4); POTASSIUM 5.8 mmol/L (3.5-5.1); SODIUM 137 mmol/L (136-145)
[2016-07-11] MEDS ORDERED: SODIUM POLYST. SULF SUSP 15G/60ML PO STA (19:28)
[2016-07-11 19:34] LABS: URINE APPEARANCE CLEAR (CLEAR); URINE BILIRUBIN NEG (NEG); URINE COLOR YELLOW; URINE EPITHELIAL CELL AUTO >30 /lpf (0-5); URINE NITRITE NEG (NEG); URINE PH >= 9.0 (4.5-7.5); UROBILINOGEN NEG (NEG); ZZUR CULT IF INDIC CLEAN CATCH NO
[2016-07-11 19:48] LABS: MANUAL MICROSCOPIC REQUIRED? NO; REVIEW REQ? NO
[2016-07-11 19:49] LABS: SULFASALICYLIC ACID POS (NEG)
[2016-07-11 20:19] VITALS: BP 160/80; PULSE 80; O2SAT 100
== END 2016-07-11 20:22 | disposition home or self-care (01) ==
LOC: EDBD 15:09 → C.EDB 15:10
DX: R55 Syncope and collapse (principal); E87.5 Hyperkalemia; Z99.2 Dependence on renal dialysis; N18.6 End stage renal disease; I12.0 Hypertensive chronic kidney disease with stage 5 chronic kidney disease or end stage renal disease; E11.9 Type 2 diabetes mellitus without complications; Z79.82 Long term (current) use of aspirin; Z79.4 Long term (current) use of insulin; Z79.899 Other long term (current) drug therapy